=== PATIENT | male | born 1940 | race Hispanic/Latino ===

== ENCOUNTER 2017-05-14 10:23 | Inpatient (IN) | payer OTHER ==
[~2017-05-14] VITALS: Ht 167.6 cm; Wt 61.2 kg
[~2017-05-14 10:23] MED LIST: AMLO5TAB2 PO; FERR325T22 PO; GABA-529 PO; INSLAN SQ; INSU100C14 SQ; METO50TA18 PO; METR500T PO; SIMV40TA5 PO
[2017-05-14] MEDS ORDERED: IOPAMIDOL-370 75 ML VIAL IV ONE (11:13)
[2017-05-14] MEDS ORDERED: SODIUM CHLORIDE 0.9% 500ML 500 ML IV ONE (11:22)
[2017-05-14 11:30] LABS: BASOPHILS % (AUTO) 0.9 % (0.0-5.0); EOSINOPHILS % (AUTO) 2.4 % (0.0-8.0); HEMATOCRIT 25.1 % (42-54); LYMPHOCYTES % (AUTO) 13.6 % (21.0-51.0); MEAN CORPUSCULAR HEMOGLOBIN 31.1 pg (27.0-33.0); MEAN CORPUSCULAR VOLUME 91.5 fL (79-99); MONOCYTES % (AUTO) 8.4 % (3.0-13.0); NEUTROPHILS % (AUTO) 74.7 % (40.0-77.0); PLATELET COUNT (AUTO) 225 K/uL (130-400); RED BLOOD CELL COUNT(AUTO) 2.74 MIL/uL (4.50-6.20); RED CELL DISTRIBUTION WIDTH 14.5 % (11.0-15.5); WHITE BLOOD COUNT (AUTO) 8.3 K/uL (4.8-10.8)
[2017-05-14 11:34] LABS: CREATININE 3.6 mg/dL (0.5-1.5); POTASSIUM 4.7 mmol/L (3.5-5.1)
[2017-05-14 11:38] LABS: ALBUMIN 2.8 g/dL (3.5-5.0); BILIRUBIN,TOTAL 0.5 mg/dL (0.2-1.0); TOTAL PROTEIN, SERUM 6.7 g/dL (6.0-8.3)
[2017-05-14 16:27] LABS: APPEARANCE,URINE Cloudy (CLEAR); BILIRUBIN,URINE Negative (NEGATIVE); COLOR,URINE Yellow (YELLOW); GLUCOSE, URINE (UA) Negative (NEGATIVE); KETONES,URINE Negative (NEGATIVE); LEUKOCYTE ESTERASE ,URINE Large (NEGATIVE); NITRATE,URINE Positive (NEGATIVE); OCCULT BLOOD,URINE Small (NEGATIVE); PROTEIN,URINE POS 2+ (NEGATIVE); UROBILINOGEN,URINE 0.2 mg/dL (0.2-1.0)
[2017-05-14 16:52] LABS: BACTERIA,URINE Many /HPF (None Seen); RBC,URINE None Seen /HPF (0-1); WBC,URINE 26-50 /HPF (0-1)
[2017-05-14] MEDS ORDERED: METRONIDAZOLE 500MG/100ML BAG 100 ML ONE (17:26)
[2017-05-14] MEDS ORDERED: SODIUM CHLORIDE 0.9% 50 ML IV ONE (17:26)
[2017-05-14] MEDS ORDERED: CEFTRIAXONE SODIUM 1 GM ONE (17:26)
[2017-05-15] MEDS ORDERED: METRONIDAZOLE 500MG/100ML BAG 100 ML ONE (00:17)
[2017-05-15] MEDS ORDERED: SODIUM CHLORIDE 0.9% 1000ML 1,000 ML IV SCH (01:10)
[2017-05-15] MEDS ORDERED: HYDRALAZINE HCL 20 MG/ML VIAL IV PRN (01:15)
[2017-05-15] MEDS ORDERED: ONDANSETRON HCL 4 MG/2 ML VIAL IVP PRN (01:15)
[2017-05-15] MEDS ORDERED: DEXTROSE 50%-WATER 50 ML DISP.SYRIN IV PRN (01:15)
[2017-05-15] MEDS ORDERED: GLUCAGON 1MG KIT 1 MG ML IM PRN (01:15)
[2017-05-15] MEDS ORDERED: ACETAMINOPHEN 325 MG TAB PO PRN (01:15)
[2017-05-15] MEDS ORDERED: LEVOFLOXACIN 500 MG/D5W 100 ML 100 ML ONE (02:26)
[2017-05-15] MEDS ORDERED: LOPE2CAP PO (02:56)
[2017-05-15] MEDS: LEVOFLOXACIN 500 MG/D5W 100 ML 100 ML IV SCH (02:59)
[2017-05-15 04:00] VITALS: BP 152/71
[2017-05-15 05:18] LABS: HEMATOCRIT 22.2 % (42-54); MEAN CORPUSCULAR HEMOGLOBIN 32.7 pg (27.0-33.0); MEAN CORPUSCULAR HGB CONC 35.6 g/dL (32.0-36.0); MEAN CORPUSCULAR VOLUME 91.9 fL (79-99); PLATELET COUNT (AUTO) 208 K/uL (130-400); RED BLOOD CELL COUNT(AUTO) 2.42 MIL/uL (4.50-6.20); RED CELL DISTRIBUTION WIDTH 14.5 % (11.0-15.5); WHITE BLOOD COUNT (AUTO) 7.8 K/uL (4.8-10.8)
[2017-05-15 05:32] LABS: CREATININE 3.4 mg/dL (0.5-1.5); POTASSIUM 4.5 mmol/L (3.5-5.1)
[2017-05-15] MEDS: INSULIN HUMULIN R 100 UNIT/ML 3ML SQ SCH ×4 (06:33→21:00)
[2017-05-15 08:01] VITALS: BP 142/64
[2017-05-15] MEDS: FAMOTIDINE 20MG TAB 20 MG TAB PO SCH ×2 (09:56→21:54)
[2017-05-15 11:30] VITALS: BP 150/70
[2017-05-15] MEDS: METOPROLOL TARTRATE 50 MG TAB PO SCH ×2 (14:56→21:54)
[2017-05-15 16:44] VITALS: BP 161/78
[2017-05-15 19:47] VITALS: BP 149/70
[2017-05-15 20:19] LABS: OCCULT BLOOD STOOL SINGLE ONLY NEGATIVE (NEGATIVE)
[2017-05-15] MEDS: ATORVASTATIN CALCIUM 20 MG TABLET PO SCH (21:54)
[2017-05-16 00:12] VITALS: BP 137/69
[2017-05-16] MEDS: LEVOFLOXACIN 500 MG/D5W 100 ML 100 ML IV SCH (01:55)
[2017-05-16 04:49] VITALS: BP 147/71
[2017-05-16 05:12] LABS: HEMATOCRIT 23.9 % (42-54); MEAN CORPUSCULAR HEMOGLOBIN 31.2 pg (27.0-33.0); MEAN CORPUSCULAR HGB CONC 34.1 g/dL (32.0-36.0); MEAN CORPUSCULAR VOLUME 91.5 fL (79-99); PLATELET COUNT (AUTO) 209 K/uL (130-400); RED BLOOD CELL COUNT(AUTO) 2.62 MIL/uL (4.50-6.20); RED CELL DISTRIBUTION WIDTH 14.3 % (11.0-15.5)
[2017-05-16 05:22] LABS: CREATININE 3.6 mg/dL (0.5-1.5); POTASSIUM 4.4 mmol/L (3.5-5.1)
[2017-05-16] MEDS: INSULIN HUMULIN R 100 UNIT/ML 3ML SQ SCH ×4 (06:40→21:40)
[2017-05-16 08:23] VITALS: BP 142/53
[2017-05-16] MEDS ORDERED: LOPERAMIDE HCL 2 MG CAP PO SCH (09:30)
[2017-05-16] MEDS ORDERED: GUAIFENESIN-DM 200/20 MG 10 ML PO PRN (09:30)
[2017-05-16] MEDS ORDERED: MAG HYDROX/AL HYDROX/SIMETH ES 30 ML SUSP UDCUP PO PRN (09:30)
[2017-05-16] MEDS ORDERED: NITROGLYCERIN 0.4 MG SL TAB SL PRN (09:30)
[2017-05-16] MEDS ORDERED: HYDRALAZINE HCL 20 MG/ML VIAL IV PRN (09:30)
[2017-05-16] MEDS ORDERED: LOPERAMIDE HCL 2 MG CAP PO PRN (09:30)
[2017-05-16] MEDS: AMLODIPINE BESYLATE 5 MG TAB PO SCH (10:12)
[2017-05-16] MEDS: METOPROLOL TARTRATE 50 MG TAB PO SCH ×3 (10:12→21:33)
[2017-05-16] MEDS: FAMOTIDINE 20MG TAB 20 MG TAB PO SCH ×2 (10:12→21:33)
[2017-05-16 12:00] VITALS: BP 167/64
[2017-05-16 16:00] VITALS: BP 159/75
[2017-05-16] MEDS: LACTOBACILLUS RHAMNOSUS GG 1 EACH CAP.SPRINK PO SCH (17:44)
[2017-05-16 19:25] VITALS: BP 147/58
[2017-05-16] MEDS: ATORVASTATIN CALCIUM 20 MG TABLET PO SCH (21:33)
[2017-05-16] MEDS: METRONIDAZOLE 500 MG TABLET PO SCH (21:33)
[2017-05-16] MEDS: INSULIN GLARGINE 100 UNITS/ML 10 ML VIAL SQ SCH (21:42)
[2017-05-17 00:21] VITALS: BP 126/54
[2017-05-17] MEDS: LEVOFLOXACIN 500 MG/D5W 100 ML 100 ML IV SCH (01:45)
[2017-05-17 04:00] VITALS: BP 145/65
[2017-05-17 06:25] LABS: CREATININE 3.7 mg/dL (0.5-1.5); MAGNESIUM 1.7 mg/dL (1.80-2.40)
[2017-05-17] MEDS: INSULIN HUMULIN R 100 UNIT/ML 3ML SQ SCH ×4 (06:38→20:58)
[2017-05-17 08:09] VITALS: BP 151/67
[2017-05-17] MEDS: INSULIN GLARGINE 100 UNITS/ML 10 ML VIAL SQ SCH ×2 (09:21→20:58)
[2017-05-17] MEDS: METOPROLOL TARTRATE 50 MG TAB PO SCH ×3 (09:25→20:41)
[2017-05-17] MEDS: FAMOTIDINE 20MG TAB 20 MG TAB PO SCH ×2 (09:25→20:41)
[2017-05-17] MEDS: AMLODIPINE BESYLATE 5 MG TAB PO SCH (09:25)
[2017-05-17] MEDS: METRONIDAZOLE 500 MG TABLET PO SCH ×3 (09:25→20:41)
[2017-05-17] MEDS: LACTOBACILLUS RHAMNOSUS GG 1 EACH CAP.SPRINK PO SCH ×2 (09:26→18:05)
[2017-05-17 11:52] VITALS: BP 143/60
[2017-05-17] MEDS ORDERED: MAGNESIUM 2GM PREMIX 50ML 50 ML IV ONE (14:06)
[2017-05-17] MEDS ORDERED: MAGNESIUM 2GM PREMIX 50ML 50 ML IV SCH (14:15)
[2017-05-17 16:26] VITALS: BP 144/64
[2017-05-17 19:30] VITALS: BP 149/60
[2017-05-17] MEDS: ATORVASTATIN CALCIUM 20 MG TABLET PO SCH (20:41)
[2017-05-18 00:06] VITALS: BP 134/58
[2017-05-18] MEDS: LEVOFLOXACIN 500 MG/D5W 100 ML 100 ML IV SCH (01:15)
[2017-05-18 04:01] VITALS: BP 110/49
[2017-05-18] MEDS: INSULIN HUMULIN R 100 UNIT/ML 3ML SQ SCH ×2 (05:59→11:30)
[2017-05-18 07:45] VITALS: BP 139/71
[2017-05-18] MEDS: INSULIN GLARGINE 100 UNITS/ML 10 ML VIAL SQ SCH (09:00)
[2017-05-18] MEDS: AMLODIPINE BESYLATE 5 MG TAB PO SCH (09:30)
[2017-05-18] MEDS: METOPROLOL TARTRATE 50 MG TAB PO SCH ×2 (09:30→14:00)
[2017-05-18] MEDS: LACTOBACILLUS RHAMNOSUS GG 1 EACH CAP.SPRINK PO SCH (09:30)
[2017-05-18] MEDS: METRONIDAZOLE 500 MG TABLET PO SCH ×2 (09:30→14:17)
[2017-05-18] MEDS: FAMOTIDINE 20MG TAB 20 MG TAB PO SCH (09:30)
[2017-05-18 11:19] VITALS: BP 138/52
== END 2017-05-18 14:30 | disposition home or self-care (01) | DRG 372 ==
LOC: EDH 10:23 → EDHIP 16:40 → OBSVTOIN 16:40 → 4CH 05-15 00:21
PROVIDERS: ADMIT Family Medicine; ATTEND Family Medicine
DX: A04.72 Enterocolitis due to Clostridium difficile, not specified as recurrent (principal); N17.9 Acute kidney failure, unspecified; E11.21 Type 2 diabetes mellitus with diabetic nephropathy; R16.0 Hepatomegaly, not elsewhere classified; E86.0 Dehydration; N39.0 Urinary tract infection, site not specified; E11.22 Type 2 diabetes mellitus with diabetic chronic kidney disease; I12.9 Hypertensive chronic kidney disease with stage 1 through stage 4 chronic kidney disease, or unspecified chronic kidney disease; N18.9 Chronic kidney disease, unspecified; B96.4 Proteus (mirabilis) (morganii) as the cause of diseases classified elsewhere; E78.5 Hyperlipidemia, unspecified; R32 Unspecified urinary incontinence; R91.1 Solitary pulmonary nodule; Z85.46 Personal history of malignant neoplasm of prostate; Z95.0 Presence of cardiac pacemaker
CPT/HCPCS: 36415; 74176; 80048; 80053; 81001; 82270; 82948; 83690; 83735; 85025; 85027; 87046; 87077; 87088; 87177; 87186; 87205; 87324; 87507; J0696; J1815; J1956; J3475; J3490; J7040; Q9967

== ENCOUNTER 2017-12-27 11:33 | Observation (INO) | payer OTHER ==
[~2017-12-27] VITALS: Ht 167.6 cm; Wt 57.0 kg
[~2017-12-27 11:33] MED LIST changes: -AMLO5TAB2 PO; +AMLO5TAB7 PO; -FERR325T22 PO; -GABA-529 PO; +LOPE2CAP PO; -METR500T PO
[2017-12-27 12:13] LABS: BASOPHILS % (AUTO) 1.4 % (0.0-5.0); EOSINOPHILS % (AUTO) 3.3 % (0.0-8.0); HEMATOCRIT 26.7 % (42-54); LYMPHOCYTES % (AUTO) 19.8 % (21.0-51.0); MEAN CORPUSCULAR HEMOGLOBIN 31.9 pg (27.0-33.0); MEAN CORPUSCULAR HGB CONC 33.4 g/dL (32.0-36.0); MEAN CORPUSCULAR VOLUME 95.5 fL (79-99); MONOCYTES % (AUTO) 7.6 % (3.0-13.0); NEUTROPHILS % (AUTO) 67.9 % (40.0-77.0); PLATELET COUNT (AUTO) 213 K/uL (130-400); RED BLOOD CELL COUNT(AUTO) 2.79 MIL/uL (4.50-6.20)
[2017-12-27 12:45] LABS: ALBUMIN 3.3 g/dL (3.5-5.0); BILIRUBIN,TOTAL 0.6 mg/dL (0.2-1.0); CREATININE 5.4 mg/dL (0.5-1.5); POTASSIUM 4.3 mmol/L (3.5-5.1); TOTAL PROTEIN, SERUM 7.3 g/dL (6.0-8.3)
[2017-12-27] MEDS ORDERED: DEXTROSE 50%-WATER 50 ML DISP.SYRIN IV ONE (12:59)
[2017-12-27] MEDS ORDERED: DEXTROSE 50%-WATER 50 ML DISP.SYRIN IV PRN (15:30)
[2017-12-27] MEDS ORDERED: SODIUM CHLORIDE 0.9% 10 ML VIAL IVP SCH (15:30)
[2017-12-27] MEDS ORDERED: GLUCAGON 1MG KIT 1 MG ML IM PRN (15:30)
[2017-12-27 17:30] VITALS: BP 176/80
[2017-12-27 19:00] VITALS: BP 145/71
[2017-12-27] MEDS: FAMOTIDINE/PF 20 MG/2 ML VIAL IV SCH (21:20)
[2017-12-28] VITALS: BP 132/64
[2017-12-28 04:00] VITALS: BP 133/62
[2017-12-28 05:56] LABS: APPEARANCE,URINE Clear (CLEAR); BILIRUBIN,URINE Negative (NEGATIVE); COLOR,URINE Yellow (YELLOW); GLUCOSE, URINE (UA) TRACE mg/dL (NEGATIVE); KETONES,URINE Negative (NEGATIVE); LEUKOCYTE ESTERASE ,URINE Trace (NEGATIVE); NITRATE,URINE Negative (NEGATIVE); OCCULT BLOOD,URINE Trace (NEGATIVE); PROTEIN,URINE 300 (NEGATIVE); UROBILINOGEN,URINE 0.2 mg/dL (0.2-1.0)
[2017-12-28 06:02] LABS: HEMATOCRIT 25.8 % (42-54); MEAN CORPUSCULAR HEMOGLOBIN 32.2 pg (27.0-33.0); MEAN CORPUSCULAR HGB CONC 33.7 g/dL (32.0-36.0); MEAN CORPUSCULAR VOLUME 95.4 fL (79-99); PLATELET COUNT (AUTO) 199 K/uL (130-400); RED BLOOD CELL COUNT(AUTO) 2.71 MIL/uL (4.50-6.20); RED CELL DISTRIBUTION WIDTH 14.2 % (11.0-15.5); WHITE BLOOD COUNT (AUTO) 8.6 K/uL (4.8-10.8)
[2017-12-28 06:07] LABS: AMORPHOUS SEDIMENT,UR Rare /LPF (None Seen); BACTERIA,URINE None Seen /HPF (None Seen); RBC,URINE 0-1 /HPF (0-1); SQUAMOUS EPITHELIAL CELL,UR Rare /HPF (0-2); WBC,URINE 0-1 /HPF (0-1)
[2017-12-28 06:19] LABS: HEMOGLOBIN A1C 9.2 % (4.0-6.0)
[2017-12-28 06:29] LABS: CREATININE 5.2 mg/dL (0.5-1.5); PHOSPHORUS 6.2 mg/dL (2.5-4.9); POTASSIUM 4.6 mmol/L (3.5-5.1); THYROID STIMULATING HORMONE 2.6 uIU/mL (0.36-3.74); URIC ACID 5.8 mg/dL (2.6-7.2)
[2017-12-28 06:33] LABS: % IRON SATURATION 42.4 % (30-44)
[2017-12-28 07:00] VITALS: BP 130/65
[2017-12-28] MEDS ORDERED: FOLIC ACID/VITAMIN B COMP W-C 1 MG CAPSULE PO SCH (09:00)
[2017-12-28] MEDS: FAMOTIDINE/PF 20 MG/2 ML VIAL IV SCH (09:32)
[2017-12-28] MEDS ORDERED: SODIUM BICARBONATE 650 MG TAB PO PRN (10:30)
[2017-12-28] MEDS ORDERED: EPOETIN ALFA 10,000 UNIT/ML VIAL SQ SCH (10:30)
[2017-12-28 11:00] VITALS: BP 128/66
[2017-12-28] MEDS ORDERED: LOPERAMIDE HCL 2 MG CAP PO SCH (11:00)
[2017-12-28] MEDS ORDERED: METOPROLOL TARTRATE 50 MG TAB PO SCH (14:00)
[2017-12-28 16:00] VITALS: BP 169/71
[2017-12-28] MEDS ORDERED: SIMVASTATIN 20 MG TABLET PO SCH (21:00)
[2017-12-29] MEDS ORDERED: AMLODIPINE BESYLATE 5 MG TAB PO SCH (09:00)
== END 2017-12-28 17:20 | disposition home or self-care (01) ==
LOC: EDH 11:33 → EDHIP 13:21 → 3DH 17:15
PROVIDERS: ADMIT Internal Medicine; ATTEND Internal Medicine
DX: E11.649 Type 2 diabetes mellitus with hypoglycemia without coma (principal); I12.9 Hypertensive chronic kidney disease with stage 1 through stage 4 chronic kidney disease, or unspecified chronic kidney disease; N17.9 Acute kidney failure, unspecified; N18.9 Chronic kidney disease, unspecified; D64.9 Anemia, unspecified; E87.2 Acidosis; E78.5 Hyperlipidemia, unspecified; E11.22 Type 2 diabetes mellitus with diabetic chronic kidney disease; Z79.4 Long term (current) use of insulin; Z85.46 Personal history of malignant neoplasm of prostate
CPT/HCPCS: 36415 ×2; 76770; 80048; 80053; 80061; 81001; 82270; 82550; 82728; 82948 ×8; 83036; 83540; 83550; 84100; 84443; 84484; 84550; 85025; 85027; 86850; 86900; 86901; 93005; 96372; 96374; 96376; 99285; G0378 ×28; J0885; J3490 ×2; J7070

== ENCOUNTER 2018-07-21 05:29 | Observation (INO) | payer OTHER ==
[2018-07-19 11:43] VITALS: BP 107/52
[2018-07-19 11:43] LABS: BASOPHILS % (AUTO) 1.9 % (0.0-5.0); EOSINOPHILS % (AUTO) 1.7 % (0.0-8.0); HEMATOCRIT 39.7 % (42-54); LYMPHOCYTES % (AUTO) 14.9 % (21.0-51.0); MEAN CORPUSCULAR HEMOGLOBIN 33.4 pg (27.0-33.0); MEAN CORPUSCULAR HGB CONC 33.5 g/dL (32.0-36.0); MEAN CORPUSCULAR VOLUME 99.5 fL (79-99); MONOCYTES % (AUTO) 7.2 % (3.0-13.0); NEUTROPHILS % (AUTO) 74.3 % (40.0-77.0); PLATELET COUNT (AUTO) 189 K/uL (130-400); RED BLOOD CELL COUNT(AUTO) 3.99 MIL/uL (4.50-6.20); RED CELL DISTRIBUTION WIDTH 14.9 % (11.0-15.5)
[2018-07-19 11:58] LABS: POTASSIUM 5.7 mmol/L (3.5-5.1)
[2018-07-19 12:05] LABS: INR 1.04 (0.85-1.15); PARTIAL THROMBOPLASTIN TIME 28.6 SEC (26.3-35.5); PROTHROMBIN TIME 10.9 SEC (9.6-11.6)
--- NOTE | 2018-07-20 12:23 | NUR ---
LABS ABNORMAL LABS REPORTED TO [facility], FURTHER ORDERS GIVEN AND WILL BE CARRIED OUT
[~2018-07-21] VITALS: Ht 165.1 cm; Wt 59.7 kg
[2018-07-21] VITALS (13 sets, daily range): BP systolic 101–158; BP diastolic 48–66
[~2018-07-21 05:29] MED LIST changes: -AMLO5TAB7 PO; +AMLODIPINE PO; +CALC667C10 PO; -INSU100C14 SQ; -LOPE2CAP PO; +SIMV10TA6 PO; -SIMV40TA5 PO
[2018-07-21] MEDS ORDERED: SODIUM CHLORIDE 0.9% 1000ML 1,000 ML IV ONE (06:01)
--- NOTE | 2018-07-21 07:10 | NUR ---
PROCEDURE PT TAKEN TO [facility] VIA BED FOR PROCEDURE, NO DISTRESS NOTED. FAMILY AT BEDSIDE
[2018-07-21] MEDS ORDERED: IODIXANOL 320 MG/ML 100 ML VIAL ONE (07:25)
[2018-07-21] MEDS ORDERED: BUPIVACAINE/PF 0.25% 30ML VIAL IJ ONE (07:25)
[2018-07-21] MEDS ORDERED: CEFAZOLIN SODIUM 1 GM VIAL ONE (07:25)
[2018-07-21] MEDS ORDERED: MIDAZOLAM HCL 1 MG/ML 2ML VIAL ONE ×2 (07:25→07:45)
[2018-07-21] MEDS ORDERED: MEPERIDINE-PF 25 MG/ML SYG ONE ×2 (07:25→07:45)
[2018-07-21] MEDS ORDERED: LIDOCAINE HCL 1% MDV 50ML VIAL ONE (07:25)
[2018-07-21] MEDS ORDERED: OCTYL 2-CYANOACRYLATE 1 EACH TP ONE ×2 (09:01→09:16)
[2018-07-21] MEDS ORDERED: DEXTROSE 50%-WATER 50 ML DISP.SYRIN IV PRN (09:30)
[2018-07-21] MEDS ORDERED: ONDANSETRON HCL 4 MG/2 ML VIAL IV PRN (09:30)
[2018-07-21] MEDS ORDERED: ACETAMINOPHEN-CODEINE 300/30MG TAB PO PRN (09:30)
--- NOTE | 2018-07-21 10:00 | NUR ---
ASSESSMENT ENCOUNTERED PT A&OX3, CALM COOPERATIVE AND DOES NOT APPEAR TO BE IN ANY DISTRESS NOR ANY NEURO DEFICITS PRESENT. PT DENIES PAIN, SOB, NAUSEA. LEFT SHOULDER DRESSING DRY, INTACT AND SECURED WITH ARM SLING. PULSES AND LENS MOUNTER STRENGTH STRONG. PT ON BEDREST FOR 6 HOURS. CALL LIGHT WITHIN REACH, FAMILY AT BEDSIDE.
[2018-07-21] MEDS: METOPROLOL TARTRATE 50 MG TAB PO SCH ×2 (13:17→21:24)
[2018-07-21] MEDS: INSULIN HUMULIN R 100 UNIT/ML 3ML SQ SCH ×3 (13:29→21:00)
[2018-07-21] MEDS ORDERED: CALCIUM ACETATE 667 MG CAPSULE PO SCH (14:00)
[2018-07-21] MEDS: ACETAMINOPHEN-CODEINE 300/30MG TAB PO PRN (15:49)
[2018-07-21] MEDS: CALCIUM ACETATE 667 MG CAPSULE PO SCH (17:00)
--- NOTE | 2018-07-21 17:00 | NUR ---
AMBULATION PT AMBULATING FOR BED TO BATHROOM AND BACK TO TO CHAIR, GAIT SLOW BUT STEADY WITH ASSIST. PT DENIES DIZZINESS, LIGHTHEADEDNESS OR DYSPNEA ON EXERTION. CALL LIGHT WITHIN REACH, FAMILY AT BEDSIDE.
[2018-07-21] MEDS ORDERED: INSULIN GLARGINE 100 UNITS/ML 10 ML VIAL SQ SCH (21:00)
[2018-07-21] MEDS ORDERED: SIMVASTATIN 10 MG TABLET PO SCH (21:00)
[2018-07-22 03:47] LABS: HEMATOCRIT 38.4 % (42-54); MEAN CORPUSCULAR HEMOGLOBIN 32.1 pg (27.0-33.0); MEAN CORPUSCULAR HGB CONC 32.8 g/dL (32.0-36.0); PLATELET COUNT (AUTO) 143 K/uL (130-400); RED BLOOD CELL COUNT(AUTO) 3.92 MIL/uL (4.50-6.20); RED CELL DISTRIBUTION WIDTH 14.6 % (11.0-15.5); WHITE BLOOD COUNT (AUTO) 6.9 K/uL (4.8-10.8)
[2018-07-22 03:48] LABS: CREATININE 5.6 mg/dL (0.5-1.5); PHOSPHORUS 4.6 mg/dL (2.5-4.9)
[2018-07-22 03:55] VITALS: BP 127/65
[2018-07-22 04:17] LABS: BASOPHILS % (MANUAL) 1 % (0-2); EOSINOPHILS % (MANUAL) 1 % (1-6); LYMPHOCYTES % (MANUAL) 20 % (22-44); MAN.DIFF COMMENT-IMPRESSION MANUAL DIFFERENTIAL; MONOCYTES % (MANUAL) 7 % (2-9); SEGMENTED NEUTROPHILS % 71 % (40-70)
[2018-07-22 04:18] LABS: PLATELET MORPHOLOGY COMMENT ADEQUATE
[2018-07-22 06:19] LABS: HEPATITIS Bs ANTIGEN SCREEN P Negative (Negative)
[2018-07-22] MEDS: INSULIN HUMULIN R 100 UNIT/ML 3ML SQ SCH ×2 (06:19→11:30)
[2018-07-22 07:00] VITALS: BP 127/57
--- NOTE | 2018-07-22 07:40 | NUR ---
ASSESSMENT ENCOUNTERED PT A&OX3, CALM COOPERATIVE AND DOES NOT APPEAR TO BE IN ANY DISTRESS NOR ANY NEURO DEFICITS PRESENT. PT IS AMBULATORY, GAIT SLOW BUT STEADY WITH STAND BY ASSIST. LEFT SHOULDER DRESSING DRY, INTACT AND SECURE WITH ARM SLING. PT IS PENDING HEMODIALYSIS. CALL LIGHT WITHIN REACH, FAMILY AT BEDSIDE.
[2018-07-22] MEDS ORDERED: AMLODIPINE BESYLATE 5 MG TAB PO SCH (09:00)
[2018-07-22 11:00] VITALS: BP 127/62
[2018-07-22] MEDS: CALCIUM ACETATE 667 MG CAPSULE PO SCH ×2 (12:00→12:01)
[2018-07-22] MEDS: METOPROLOL TARTRATE 50 MG TAB PO SCH (12:01)
[2018-07-22] MEDS: ACETAMINOPHEN-CODEINE 300/30MG TAB PO PRN (12:03)
[2018-07-22] MEDS ORDERED: APIX5TAB PO (12:37)
--- NOTE | 2018-07-22 13:00 | NUR ---
DISCHARGE INSTRUCTIONS GIVEN, PIV REMOVED AND INTACT, DISCHARGED HOME TO FAMILY VEHICLE VIA WHEELCHAIR.
== END 2018-07-22 15:20 | disposition home or self-care (01) ==
LOC: DAH 05:29 → DAHIP 05:30 → 2DH 10:06
PROVIDERS: ADMIT Internal Medicine; ATTEND Internal Medicine
DX: I13.2 Hypertensive heart and chronic kidney disease with heart failure and with stage 5 chronic kidney disease, or end stage renal disease (principal); N18.6 End stage renal disease; I50.42 Chronic combined systolic (congestive) and diastolic (congestive) heart failure; I25.10 Atherosclerotic heart disease of native coronary artery without angina pectoris; E11.40 Type 2 diabetes mellitus with diabetic neuropathy, unspecified; I44.2 Atrioventricular block, complete; I48.0 Paroxysmal atrial fibrillation; I42.9 Cardiomyopathy, unspecified; E11.22 Type 2 diabetes mellitus with diabetic chronic kidney disease; D68.59 Other primary thrombophilia; E78.2 Mixed hyperlipidemia; Z95.810 Presence of automatic (implantable) cardiac defibrillator; Z99.2 Dependence on renal dialysis; Z82.49 Family history of ischemic heart disease and other diseases of the circulatory system; Z83.3 Family history of diabetes mellitus; Z79.899 Other long term (current) drug therapy
CPT/HCPCS: 33225; 33228; 36415 ×3; 71046; 80048 ×2; 82948 ×8; 84100; 84132; 85025 ×2; 85610; 85730; 86704; 86706; 87340; 87520; 93005; 96372; A4606; C1769 ×2; C1894; C1900; C2621; G0378 ×34; J0690; J1815; J2175 ×2; J2250 ×2; J3490 ×2; J7030; J7070; Q9967; 90935; 99156; 99157; G0257

== ENCOUNTER 2018-07-25 19:12 | Emergency (ER) | payer OTHER ==
[~2018-07-25 19:12] MED LIST changes: +APIX5TAB PO
[2018-07-25] MEDS ORDERED: BISACODYL 10 MG SUPP.RECT RC ONE (19:57)
[2018-07-25 20:06] LABS: BASOPHILS % (AUTO) 0.9 % (0.0-5.0); EOSINOPHILS % (AUTO) 2.6 % (0.0-8.0); HEMATOCRIT 36.4 % (42-54); LYMPHOCYTES % (AUTO) 10.2 % (21.0-51.0); MEAN CORPUSCULAR HEMOGLOBIN 32.6 pg (27.0-33.0); MEAN CORPUSCULAR HGB CONC 33.1 g/dL (32.0-36.0); MEAN CORPUSCULAR VOLUME 98.4 fL (79-99); MONOCYTES % (AUTO) 8.5 % (3.0-13.0); NEUTROPHILS % (AUTO) 77.8 % (40.0-77.0); PLATELET COUNT (AUTO) 159 K/uL (130-400); RED CELL DISTRIBUTION WIDTH 14.5 % (11.0-15.5); WHITE BLOOD COUNT (AUTO) 8.1 K/uL (4.8-10.8)
[2018-07-25 20:19] LABS: CREATININE 6.4 mg/dL (0.5-1.5); POTASSIUM 4.7 mmol/L (3.5-5.1)
[2018-07-25 20:25] LABS: ALBUMIN 3.7 g/dL (3.5-5.0); BILIRUBIN,DIRECT 0.2 mg/dL (0.0-0.3); TOTAL PROTEIN, SERUM 7.4 g/dL (6.0-8.3)
[2018-07-25] MEDS ORDERED: HYDROCODONE/ACETAMINOPHEN 10/325 MG TAB ONE (20:47)
== END 2018-07-25 22:01 | disposition home or self-care (01) ==
LOC: EDH 19:12
DX: K59.00 Constipation, unspecified (principal); I10 Essential (primary) hypertension; E78.5 Hyperlipidemia, unspecified; E11.9 Type 2 diabetes mellitus without complications; Z95.1 Presence of aortocoronary bypass graft; Z85.46 Personal history of malignant neoplasm of prostate
CPT/HCPCS: 36415; 74176; 80048; 80076; 83690; 85025

== ENCOUNTER 2018-09-16 18:41 | Emergency (ER) | payer OTHER ==
[2018-09-16] MEDS ORDERED: ONDANSETRON HCL 4 MG/2 ML VIAL ONE (19:40)
[2018-09-16] MEDS ORDERED: MORPHINE SULFATE 2 MG/ML 1ML SYG ONE (19:40)
[2018-09-16 19:45] LABS: BASOPHILS % (AUTO) 1.1 % (0.0-5.0); EOSINOPHILS % (AUTO) 2.2 % (0.0-8.0); HEMATOCRIT 31.1 % (42-54); MEAN CORPUSCULAR HEMOGLOBIN 33.4 pg (27.0-33.0); MEAN CORPUSCULAR HGB CONC 34.2 g/dL (32.0-36.0); MEAN CORPUSCULAR VOLUME 97.5 fL (79-99); MONOCYTES % (AUTO) 13.4 % (3.0-13.0); NEUTROPHILS % (AUTO) 60.3 % (40.0-77.0); NUCLEATED RED BLOOD CELLS 0.1 % (0.0-0.19); PLATELET COUNT (AUTO) 176 K/uL (130-400); RED BLOOD CELL COUNT(AUTO) 3.19 MIL/uL (4.50-6.20); RED CELL DISTRIBUTION WIDTH 13.9 % (11.0-15.5); WHITE BLOOD COUNT (AUTO) 6.2 K/uL (4.8-10.8)
[2018-09-16] MEDS ORDERED: ASPIRIN 325 MG TABLET ONE (19:52)
[2018-09-16 19:57] LABS: CREATININE 3.4 mg/dL (0.5-1.5); POTASSIUM 4.2 mmol/L (3.5-5.1)
[2018-09-16 20:00] LABS: INR 0.95 (0.85-1.15); PARTIAL THROMBOPLASTIN TIME 25.7 SEC (26.3-35.5)
[2018-09-16 20:08] LABS: ALBUMIN 3.4 g/dL (3.5-5.0); BILIRUBIN,TOTAL 0.9 mg/dL (0.2-1.0); TOTAL PROTEIN, SERUM 7.2 g/dL (6.0-8.3)
== END 2018-09-16 23:50 | disposition home or self-care (01) ==
LOC: EDH 18:41
DX: I12.0 Hypertensive chronic kidney disease with stage 5 chronic kidney disease or end stage renal disease (principal); E11.22 Type 2 diabetes mellitus with diabetic chronic kidney disease; N18.6 End stage renal disease; R10.9 Unspecified abdominal pain; E78.5 Hyperlipidemia, unspecified; Z98.890 Other specified postprocedural states; Z99.2 Dependence on renal dialysis
CPT/HCPCS: 36415; 71045; 80053; 82550; 83874; 84484 ×2; 85025; 85610; 85730; 93005 ×2; 96374; 96375; 99283; J2405

== ENCOUNTER 2018-09-18 08:05 | Emergency (ER) | payer OTHER ==
[2018-09-18 08:50] LABS: BASOPHILS % (AUTO) 0.7 % (0.0-5.0); EOSINOPHILS % (AUTO) 3.2 % (0.0-8.0); HEMATOCRIT 33.2 % (42-54); LYMPHOCYTES % (AUTO) 15.3 % (21.0-51.0); MEAN CORPUSCULAR HEMOGLOBIN 33.4 pg (27.0-33.0); MEAN CORPUSCULAR VOLUME 98.3 fL (79-99); MONOCYTES % (AUTO) 8.8 % (3.0-13.0); PLATELET COUNT (AUTO) 177 K/uL (130-400); RED BLOOD CELL COUNT(AUTO) 3.38 MIL/uL (4.50-6.20); RED CELL DISTRIBUTION WIDTH 13.9 % (11.0-15.5); WHITE BLOOD COUNT (AUTO) 6.9 K/uL (4.8-10.8)
[2018-09-18] MEDS ORDERED: ASPIRIN 325 MG TABLET ONE (08:55)
[2018-09-18 09:03] LABS: B-TYPE NATRIURETIC PEPTIDE 212 pg/mL (0-100); POTASSIUM 4.2 mmol/L (3.5-5.1)
[2018-09-18 09:04] LABS: INR 0.95 (0.85-1.15); PARTIAL THROMBOPLASTIN TIME 27.1 SEC (26.3-35.5)
[2018-09-18 09:09] LABS: ALBUMIN 3.5 g/dL (3.5-5.0); BILIRUBIN,TOTAL 0.7 mg/dL (0.2-1.0); TOTAL PROTEIN, SERUM 7.3 g/dL (6.0-8.3)
[2018-09-18] MEDS ORDERED: MORPHINE SULFATE 2 MG/ML 1ML SYG ONE (09:17)
[2018-09-18] MEDS ORDERED: ONDANSETRON HCL 4 MG/2 ML VIAL ONE (09:17)
== END 2018-09-18 11:52 | disposition home or self-care (01) ==
LOC: EDH 08:05
DX: K59.00 Constipation, unspecified (principal); R07.89 Other chest pain; E11.22 Type 2 diabetes mellitus with diabetic chronic kidney disease; I12.0 Hypertensive chronic kidney disease with stage 5 chronic kidney disease or end stage renal disease; N18.6 End stage renal disease; Z91.011 Allergy to milk products; Z85.46 Personal history of malignant neoplasm of prostate
CPT/HCPCS: 36415; 71045; 74176; 80053; 82550; 83880; 84484; 85025; 85610; 85730; 93005; 96374; 96375; 99285; J2405

== ENCOUNTER → 2018-10-13 | Outpatient (CLI) | payer OTHER | END | disposition home or self-care (01) | LOC: RAH 08:31 | PROVIDERS: ATTEND Internal Medicine Gastroenterology | DX: N26.1 Atrophy of kidney (terminal) (principal); R93.2 Abnormal findings on diagnostic imaging of liver and biliary tract; R63.4 Abnormal weight loss | CPT/HCPCS: 76700 ==

== ENCOUNTER 2018-11-09 06:39 | Emergency (ER) | payer OTHER ==
[2018-11-09 07:27] LABS: BASOPHILS % (AUTO) 1.2 % (0.0-5.0); EOSINOPHILS % (AUTO) 4.8 % (0.0-8.0); HEMATOCRIT 33.2 % (42-54); LYMPHOCYTES % (AUTO) 21.6 % (21.0-51.0); MEAN CORPUSCULAR HEMOGLOBIN 34.7 pg (27.0-33.0); MEAN CORPUSCULAR HGB CONC 34.4 g/dL (32.0-36.0); MEAN CORPUSCULAR VOLUME 100.9 fL (79-99); MONOCYTES % (AUTO) 7.2 % (3.0-13.0); NEUTROPHILS % (AUTO) 65.2 % (40.0-77.0); PLATELET COUNT (AUTO) 196 K/uL (130-400); RED BLOOD CELL COUNT(AUTO) 3.29 MIL/uL (4.50-6.20); RED CELL DISTRIBUTION WIDTH 14.4 % (11.0-15.5); WHITE BLOOD COUNT (AUTO) 5.7 K/uL (4.8-10.8)
[2018-11-09 07:44] LABS: ALBUMIN 3.3 g/dL (3.5-5.0); BILIRUBIN,DIRECT 0.2 mg/dL (0.0-0.3); BILIRUBIN,TOTAL 0.7 mg/dL (0.2-1.0); CREATININE 7.2 mg/dL (0.5-1.5); POTASSIUM 4.7 mmol/L (3.5-5.1); TOTAL PROTEIN, SERUM 6.8 g/dL (6.0-8.3)
[2018-11-09] MEDS ORDERED: ACETAMINOPHEN-CODEINE 300/30MG TAB ONE (11:18)
[2018-11-09] MEDS ORDERED: [UNRECOGNIZED DRUG - OTHER] (16:11)
[2018-11-09] MEDS ORDERED: FOLI1TAB85 PO (16:11)
[2018-11-10] MEDS ORDERED: TYL3 PO (06:39)
[2018-11-10] MEDS ORDERED: ERGO500014 PO (06:39)
== END 2018-11-09 11:29 | disposition home or self-care (01) ==
LOC: EDH 06:39
DX: E11.22 Type 2 diabetes mellitus with diabetic chronic kidney disease (principal); I12.0 Hypertensive chronic kidney disease with stage 5 chronic kidney disease or end stage renal disease; N18.6 End stage renal disease; M25.551 Pain in right hip; E11.649 Type 2 diabetes mellitus with hypoglycemia without coma; Z85.46 Personal history of malignant neoplasm of prostate; Z88.8 Allergy status to other drugs, medicaments and biological substances
CPT/HCPCS: 36415; 74176; 80048; 80076; 83690; 84484; 85025; 93005

== ENCOUNTER 2018-11-10 05:20 | Day surgery (SDC) | payer OTHER ==
[~2018-11-10] VITALS: Ht 167.6 cm; Wt 56.7 kg
[~2018-11-10 05:20] MED LIST changes: -APIX5TAB PO; +FOLI1TAB85 PO; -SIMV10TA6 PO; +SIMV10TA97 PO; +[UNRECOGNIZED DRUG - OTHER]
[2018-11-10] MEDS ORDERED: SODIUM CHLORIDE 0.9% 1000ML 1,000 ML IV ONE (05:43)
[2018-11-10 06:15] VITALS: BP 155/61
[2018-11-10] MEDS ORDERED: ERGO500014 PO (06:39)
[2018-11-10] MEDS ORDERED: TYL3 PO (06:39)
[2018-11-10] MEDS ORDERED: PROPOFOL 10 MG/ML 20ML VIAL IV ONE (07:16)
[2018-11-10 07:42] VITALS: BP 125/36
[2018-11-10 07:47] VITALS: BP 128/33
[2018-11-10 07:52] VITALS: BP 128/39
[2018-11-10 07:57] VITALS: BP 154/62
[2018-11-10 08:02] VITALS: BP 152/60
== END 2018-11-10 08:10 | disposition home or self-care (01) ==
LOC: DAH 05:20 → ENDO 05:20
PROVIDERS: ATTEND Internal Medicine Gastroenterology
DX: R19.4 Change in bowel habit (principal); D12.0 Benign neoplasm of cecum; K64.1 Second degree hemorrhoids; K57.30 Diverticulosis of large intestine without perforation or abscess without bleeding; I25.10 Atherosclerotic heart disease of native coronary artery without angina pectoris; K29.70 Gastritis, unspecified, without bleeding; E11.22 Type 2 diabetes mellitus with diabetic chronic kidney disease; D63.1 Anemia in chronic kidney disease; I12.0 Hypertensive chronic kidney disease with stage 5 chronic kidney disease or end stage renal disease; N18.6 End stage renal disease; Z95.0 Presence of cardiac pacemaker; Z91.011 Allergy to milk products; Z79.4 Long term (current) use of insulin; Z79.899 Other long term (current) drug therapy; Z85.46 Personal history of malignant neoplasm of prostate; E78.00 Pure hypercholesterolemia, unspecified; Z86.010 Personal history of colon polyps
CPT/HCPCS: 36415; 45388; 82948 ×2; 84132; 88305; A4221; A4222; A4223; A4335; A4606; A4615; A4663; J2704; J7030

== ENCOUNTER 2018-11-11 06:45 | Emergency (ER) | payer OTHER ==
[~2018-11-11 06:45] MED LIST changes: +ERGO500014 PO; +TYL3 PO
[2018-11-11] MEDS ORDERED: KETOROLAC TROMETHAMINE 15MG/ML ONE (08:03)
[2018-11-11 08:10] LABS: BASOPHILS % (AUTO) 0.4 % (0.0-5.0); EOSINOPHILS % (AUTO) 0.3 % (0.0-8.0); HEMATOCRIT 34.5 % (42-54); LYMPHOCYTES % (AUTO) 6.1 % (21.0-51.0); MEAN CORPUSCULAR HEMOGLOBIN 34.1 pg (27.0-33.0); MEAN CORPUSCULAR HGB CONC 33.5 g/dL (32.0-36.0); MEAN CORPUSCULAR VOLUME 101.8 fL (79-99); NEUTROPHILS % (AUTO) 85.2 % (40.0-77.0); PLATELET COUNT (AUTO) 165 K/uL (130-400); RED BLOOD CELL COUNT(AUTO) 3.39 MIL/uL (4.50-6.20); RED CELL DISTRIBUTION WIDTH 14.1 % (11.0-15.5); WHITE BLOOD COUNT (AUTO) 16.2 K/uL (4.8-10.8)
[2018-11-11 08:17] LABS: CREATININE 5.3 mg/dL (0.5-1.5); POTASSIUM 4.6 mmol/L (3.5-5.1)
[2018-11-11 08:24] LABS: ALBUMIN 3.3 g/dL (3.5-5.0); BILIRUBIN,TOTAL 1.4 mg/dL (0.2-1.0)
[2018-11-11 11:34] LABS: APPEARANCE,URINE Clear (CLEAR); BILIRUBIN,URINE Negative (NEGATIVE); COLOR,URINE Yellow (YELLOW); GLUCOSE, URINE (UA) TRACE mg/dL (NEGATIVE); KETONES,URINE Negative (NEGATIVE); LEUKOCYTE ESTERASE ,URINE Negative (NEGATIVE); NITRATE,URINE Negative (NEGATIVE); OCCULT BLOOD,URINE Negative (NEGATIVE); PH,URINE >=9.0 (5.0-8.0); PROTEIN,URINE POS 2+ mg/dL (NEGATIVE); UROBILINOGEN,URINE 0.2 mg/dL (0.2-1.0)
[2018-11-11 12:12] LABS: BACTERIA,URINE Rare /HPF (None Seen); RBC,URINE 0-1 /HPF (0-1); SQUAMOUS EPITHELIAL CELL,UR Rare /HPF (0-2); WBC,URINE 0-1 /HPF (0-1)
== END 2018-11-11 19:06 | disposition home or self-care (01) ==
LOC: EDH 06:45
DX: R10.31 Right lower quadrant pain (principal); I12.0 Hypertensive chronic kidney disease with stage 5 chronic kidney disease or end stage renal disease; E11.22 Type 2 diabetes mellitus with diabetic chronic kidney disease; N18.6 End stage renal disease; E78.5 Hyperlipidemia, unspecified; Z98.890 Other specified postprocedural states; Z91.011 Allergy to milk products; Z79.4 Long term (current) use of insulin
CPT/HCPCS: 36415; 74176; 80053; 81001; 82948 ×2; 85025; 96374; 99284; J1885

== ENCOUNTER 2019-04-14 23:33 | Emergency (ER) | payer OTHER ==
[2019-04-15] MEDS ORDERED: ONDANSETRON HCL 4 MG/2 ML VIAL ONE (00:07)
[2019-04-15] MEDS ORDERED: ACETAMINOPHEN EXTRA STRENGTH 500 MG TABLET ONE (00:07)
[2019-04-15 00:50] LABS: EOSINOPHILS % (AUTO) 4.2 % (0.0-8.0); HEMATOCRIT 34.1 % (42-54); LYMPHOCYTES % (AUTO) 20.3 % (21.0-51.0); MEAN CORPUSCULAR HEMOGLOBIN 32.8 pg (27.0-33.0); MEAN CORPUSCULAR HGB CONC 33.4 g/dL (32.0-36.0); MONOCYTES % (AUTO) 11.8 % (3.0-13.0); NEUTROPHILS % (AUTO) 62.5 % (40.0-77.0); PLATELET COUNT (AUTO) 138 K/uL (130-400); RED BLOOD CELL COUNT(AUTO) 3.48 MIL/uL (4.50-6.20); RED CELL DISTRIBUTION WIDTH 12.5 % (11.0-15.5); WHITE BLOOD COUNT (AUTO) 5.9 K/uL (4.8-10.8)
[2019-04-15 00:51] LABS: ALBUMIN 3.6 g/dL (3.5-5.0); BILIRUBIN,TOTAL 0.7 mg/dL (0.2-1.0); CREATININE 3.6 mg/dL (0.5-1.5); POTASSIUM 3.7 mmol/L (3.5-5.1); TOTAL PROTEIN, SERUM 7.2 g/dL (6.0-8.3)
[2019-04-15 00:54] LABS: INR 0.93 (0.85-1.15); PARTIAL THROMBOPLASTIN TIME 26.5 SEC (26.3-35.5); PROTHROMBIN TIME 9.8 SEC (9.6-11.6)
== END 2019-04-15 02:19 | disposition home or self-care (01) ==
LOC: EDH 23:33
DX: F43.9 Reaction to severe stress, unspecified (principal); I12.0 Hypertensive chronic kidney disease with stage 5 chronic kidney disease or end stage renal disease; E11.22 Type 2 diabetes mellitus with diabetic chronic kidney disease; N18.6 End stage renal disease; R11.0 Nausea; Z99.2 Dependence on renal dialysis; Z98.890 Other specified postprocedural states; Z85.46 Personal history of malignant neoplasm of prostate
CPT/HCPCS: 36415; 70450; 80053; 82550; 84484; 85025; 85610; 85730; 93005; 96374; 99284; J2405

== ENCOUNTER 2019-06-23 14:49 | Emergency (ER) | payer OTHER ==
[2019-06-23] MEDS ORDERED: ONDANSETRON HCL 4 MG/2 ML VIAL ONE (15:25)
[2019-06-23 15:29] LABS: BASOPHILS % (AUTO) 0.4 % (0.0-5.0); EOSINOPHILS % (AUTO) 0.3 % (0.0-8.0); HEMATOCRIT 29.1 % (42-54); LYMPHOCYTES % (AUTO) 9.8 % (21.0-51.0); MEAN CORPUSCULAR HEMOGLOBIN 33.4 pg (27.0-33.0); MEAN CORPUSCULAR HGB CONC 35.4 g/dL (32.0-36.0); MEAN CORPUSCULAR VOLUME 94.5 fL (79-99); MONOCYTES % (AUTO) 9.6 % (3.0-13.0); NEUTROPHILS % (AUTO) 79.7 % (40.0-77.0); PLATELET COUNT (AUTO) 187 K/uL (130-400); RED BLOOD CELL COUNT(AUTO) 3.08 MIL/uL (4.50-6.20); RED CELL DISTRIBUTION WIDTH 12.1 % (11.0-15.5); WHITE BLOOD COUNT (AUTO) 9.6 K/uL (4.8-10.8)
[2019-06-23 15:43] LABS: CREATININE 3.2 mg/dL (0.5-1.5); POTASSIUM 3.1 mmol/L (3.5-5.1)
[2019-06-23 15:45] LABS: INR 0.93 (0.85-1.15); PARTIAL THROMBOPLASTIN TIME 25.5 SEC (26.3-35.5); PROTHROMBIN TIME 10.1 SEC (9.6-11.6)
[2019-06-23 15:49] LABS: ALBUMIN 3.9 g/dL (3.5-5.0); BILIRUBIN,TOTAL 1.3 mg/dL (0.2-1.0); TOTAL PROTEIN, SERUM 7.4 g/dL (6.0-8.3)
[2019-06-23] MEDS ORDERED: POTASSIUM CHLORIDE 20 MEQ ERTAB PO ONE (16:58)
== END 2019-06-23 18:17 | disposition home or self-care (01) ==
LOC: EDH 14:49
DX: R51 Headache (principal); E11.22 Type 2 diabetes mellitus with diabetic chronic kidney disease; I12.0 Hypertensive chronic kidney disease with stage 5 chronic kidney disease or end stage renal disease; N18.6 End stage renal disease
CPT/HCPCS: 36415; 70450; 71045; 80053; 82550; 84484 ×2; 85025; 85610; 85730; 93005 ×2; 96374; 99284; J2405

== ENCOUNTER → 2019-08-26 | Outpatient (CLI) | payer OTHER | END | disposition home or self-care (01) | DX: I70.208 Unspecified atherosclerosis of native arteries of extremities, other extremity (principal) ==

== ENCOUNTER 2020-06-09 20:13 | Emergency (ER) | payer OTHER ==
[2020-06-09] MEDS ORDERED: HYDROXYZINE HCL 25 MG TABLET ONE (20:41)
[2020-06-09] MEDS ORDERED: NIFEDIPINE 10 MG CAP ONE (21:28)
[2020-06-09 21:54] LABS: BASOPHILS % (AUTO) 1.3 % (0.0-5.0); EOSINOPHILS % (AUTO) 3.6 % (0.0-8.0); HEMATOCRIT 40.2 % (42-54); LYMPHOCYTES % (AUTO) 18.1 % (21.0-51.0); MEAN CORPUSCULAR HEMOGLOBIN 32.3 pg (27.0-33.0); MEAN CORPUSCULAR HGB CONC 32.1 g/dL (32.0-36.0); MEAN CORPUSCULAR VOLUME 100.5 fL (79-99); MONOCYTES % (AUTO) 9.7 % (3.0-13.0); NEUTROPHILS % (AUTO) 67.1 % (40.0-77.0); PLATELET COUNT (AUTO) 120 K/uL (130-400); RED CELL DISTRIBUTION WIDTH 13.2 % (11.0-15.5); WHITE BLOOD COUNT (AUTO) 5.6 K/uL (4.8-10.8)
[2020-06-09 22:14] LABS: ALBUMIN 3.5 g/dL (3.5-5.0); BILIRUBIN,TOTAL 0.4 mg/dL (0.2-1.0); CREATININE 5.5 mg/dL (0.5-1.5); POTASSIUM 4.6 mmol/L (3.5-5.1); TOTAL PROTEIN, SERUM 6.8 g/dL (6.0-8.3)
== END 2020-06-09 22:47 | disposition home or self-care (01) ==
LOC: EDH 20:13
DX: F41.9 Anxiety disorder, unspecified (principal); G47.00 Insomnia, unspecified; I12.0 Hypertensive chronic kidney disease with stage 5 chronic kidney disease or end stage renal disease; E11.22 Type 2 diabetes mellitus with diabetic chronic kidney disease; N18.6 End stage renal disease; E78.5 Hyperlipidemia, unspecified; Z99.2 Dependence on renal dialysis; Z98.890 Other specified postprocedural states
CPT/HCPCS: 36415; 71045; 80053; 84484; 85025; 93005

== ENCOUNTER 2020-11-06 02:13 | Inpatient (IN) | payer OTHER ==
[~2020-11-06] VITALS: Ht 152.4 cm; Wt 58.4 kg
[2020-11-06] VITALS (8 sets, daily range): BP systolic 110–211; BP diastolic 42–83
[2020-11-06] MEDS ORDERED: HYDRALAZINE 20MG/ML VIAL ONE (02:44)
[2020-11-06 02:52] LABS: BASOPHILS % (AUTO) 0.8 % (0.0-5.0); EOSINOPHILS % (AUTO) 2.1 % (0.0-8.0); HEMATOCRIT 39.7 % (42-54); LYMPHOCYTES % (AUTO) 16.9 % (21.0-51.0); MEAN CORPUSCULAR HEMOGLOBIN 32.7 pg (27.0-33.0); MEAN CORPUSCULAR HGB CONC 32.2 g/dL (32.0-36.0); MEAN CORPUSCULAR VOLUME 101.3 fL (79-99); MONOCYTES % (AUTO) 11.5 % (3.0-13.0); NEUTROPHILS % (AUTO) 68.4 % (40.0-77.0); PLATELET COUNT (AUTO) 137 K/uL (130-400); RED BLOOD CELL COUNT(AUTO) 3.92 MIL/uL (4.50-6.20); RED CELL DISTRIBUTION WIDTH 13.3 % (11.0-15.5); WHITE BLOOD COUNT (AUTO) 6.2 K/uL (4.8-10.8)
[2020-11-06] MEDS: HYDRALAZINE 20MG/ML VIAL IV SCH ×2 (03:00→03:16)
[2020-11-06 03:04] LABS: ALBUMIN 3.5 g/dL (3.5-5.0); BILIRUBIN,TOTAL 0.6 mg/dL (0.2-1.0); CREATININE 4.4 mg/dL (0.5-1.5); POTASSIUM 4.4 mmol/L (3.5-5.1); TOTAL PROTEIN, SERUM 6.9 g/dL (6.0-8.3)
[2020-11-06 03:13] LABS: B-TYPE NATRIURETIC PEPTIDE 831 pg/mL (0-100)
[2020-11-06] MEDS ORDERED: NITROGLYCERIN 1GM OINT 1 INCH/1GM TD ONE ×2 (03:36→04:00)
[2020-11-06] MEDS ORDERED: ASPIRIN 81MG CHEW TAB ONE (03:36)
[2020-11-06] MEDS ORDERED: ASPIRIN 325MG TAB PO ONE (04:00)
[2020-11-06] MEDS ORDERED: FOLI0.8T43 PO (04:40)
[2020-11-06] MEDS ORDERED: VITA-395 PO (04:40)
[2020-11-06] MEDS ORDERED: METO50TA18 PO (04:40)
[2020-11-06] MEDS ORDERED: SIMV10TA97 PO (04:40)
[2020-11-06] MEDS ORDERED: CALC667C10 PO (04:40)
[2020-11-06] MEDS ORDERED: AMLO-257 PO (04:40)
[2020-11-06] MEDS: NITROGLYCERIN 1GM OINT 1 INCH/1GM TD SCH ×3 (05:00→21:43)
[2020-11-06] MEDS ORDERED: HYDRALAZINE 20MG/ML VIAL IV PRN (05:00)
[2020-11-06] MEDS ORDERED: MORPHINE 2 MG SYG IV PRN (05:00)
[2020-11-06] MEDS ORDERED: ONDANSETRON 4MG INJ IV PRN (05:00)
[2020-11-06 05:58] LABS: HEMOGLOBIN A1C 8.4 % (4.0-6.0)
[2020-11-06] MEDS: INSULIN HUMULIN R 100 UNIT/ML 3ML SQ SCH ×4 (09:06→21:49)
[2020-11-06] MEDS: ASPIRIN 81 MG EC TAB PO SCH (09:19)
[2020-11-06] MEDS: HEPARIN 5,000 UNIT VIAL SQ SCH ×3 (09:19→21:43)
[2020-11-06] MEDS: LISINOPRIL 20 MG TABLET PO SCH (09:53)
[2020-11-06] MEDS: CALCIUM AC 667MG CAP PO SCH ×2 (13:43→18:14)
[2020-11-06] MEDS: METOPROLOL TARTRATE 50 MG TAB PO SCH ×2 (14:21→21:43)
[2020-11-07] VITALS (21 sets, daily range): BP systolic 125–178; BP diastolic 54–76
[2020-11-07] MEDS: NITROGLYCERIN 1GM OINT 1 INCH/1GM TD SCH ×2 (05:30→13:00)
[2020-11-07] MEDS: HYDRALAZINE 20MG/ML VIAL IV SCH (05:30)
[2020-11-07 05:48] LABS: BASOPHILS % (AUTO) 0.5 % (0.0-5.0); EOSINOPHILS % (AUTO) 0.5 % (0.0-8.0); HEMATOCRIT 40.1 % (42-54); LYMPHOCYTES % (AUTO) 9.6 % (21.0-51.0); MEAN CORPUSCULAR HGB CONC 31.7 g/dL (32.0-36.0); NEUTROPHILS % (AUTO) 81.2 % (40.0-77.0); PLATELET COUNT (AUTO) 156 K/uL (130-400); RED BLOOD CELL COUNT(AUTO) 3.97 MIL/uL (4.50-6.20); RED CELL DISTRIBUTION WIDTH 13.3 % (11.0-15.5)
[2020-11-07 06:12] LABS: CREATININE 5.6 mg/dL (0.5-1.5); MAGNESIUM 2.4 mg/dL (1.80-2.40); PHOSPHORUS 5.2 mg/dL (2.5-4.9); POTASSIUM 4.1 mmol/L (3.5-5.1)
[2020-11-07] MEDS: INSULIN HUMULIN R 100 UNIT/ML 3ML SQ SCH ×3 (06:12→16:56)
[2020-11-07] MEDS ORDERED: METOPROLOL TARTRATE 50 MG TAB PO SCH ×2 (09:00→21:00)
[2020-11-07] MEDS ORDERED: LISINOPRIL 20 MG TABLET PO SCH (09:00)
[2020-11-07] MEDS: HEPARIN 5,000 UNIT VIAL SQ SCH ×2 (09:00→14:00)
[2020-11-07] MEDS ORDERED: AMLODIPINE 5 MG TAB PO SCH (09:00)
[2020-11-07] MEDS: LISINOPRIL 20 MG TABLET PO SCH (09:30)
[2020-11-07] MEDS: CALCIUM AC 667MG CAP PO SCH ×3 (10:09→16:54)
[2020-11-07] MEDS: ASPIRIN 81 MG EC TAB PO SCH (10:09)
[2020-11-07] MEDS ORDERED: 0.9%NACL 1000ML 1,000 ML IV PRN (12:00)
[2020-11-07] MEDS ORDERED: LISI20TA24 PO (14:12)
[2020-11-07] MEDS ORDERED: METO-482 PO (14:31)
[2020-11-08 06:16] LABS: HEPATITIS Bs ANTIGEN SCREEN P Negative (Negative)
== END 2020-11-07 17:54 | disposition home or self-care (01) | DRG 304 ==
LOC: EDH 02:13 → EDHIP 04:37 → 4CH 11-07 04:49
PROVIDERS: ADMIT Internal Medicine; ATTEND Internal Medicine
PROC: 5A1D70Z Performance of Urinary Filtration, Intermittent, Less than 6 Hours Per Day (ICD-10-PCS; principal; 2020-11-07)
DX: I16.0 Hypertensive urgency (principal); N18.6 End stage renal disease; I12.0 Hypertensive chronic kidney disease with stage 5 chronic kidney disease or end stage renal disease; E11.22 Type 2 diabetes mellitus with diabetic chronic kidney disease; E11.65 Type 2 diabetes mellitus with hyperglycemia; E78.5 Hyperlipidemia, unspecified; I48.0 Paroxysmal atrial fibrillation; D63.8 Anemia in other chronic diseases classified elsewhere; E78.00 Pure hypercholesterolemia, unspecified; I25.10 Atherosclerotic heart disease of native coronary artery without angina pectoris; Z99.2 Dependence on renal dialysis; Z95.0 Presence of cardiac pacemaker; Z79.01 Long term (current) use of anticoagulants; Z91.14 Patient's other noncompliance with medication regimen; Z88.8 Allergy status to other drugs, medicaments and biological substances; Z86.73 Personal history of transient ischemic attack (TIA), and cerebral infarction without residual deficits; Z83.3 Family history of diabetes mellitus; Z82.49 Family history of ischemic heart disease and other diseases of the circulatory system; R07.89 Other chest pain
CPT/HCPCS: 36415; 70450; 71045; 80048; 80053; 82550; 82948; 83036; 83735; 83880; 84100; 84484; 85025; 86704; 86706; 87340; 90935; 93005; G0378; J0360; J1644; J1815

== ENCOUNTER 2020-11-18 21:42 | Emergency (ER) | payer OTHER ==
[~2020-11-18] VITALS: Ht 167.6 cm; Wt 61.2 kg
[~2020-11-18 21:42] MED LIST changes: +AMLO-257 PO; -AMLODIPINE PO; +FOLI0.8T43 PO; -INSLAN SQ; +LISI20TA24 PO; +METO-482 PO; -METO50TA18 PO; -TYL3 PO; +VITA-395 PO; -[UNRECOGNIZED DRUG - OTHER]
[2020-11-18 23:15] LABS: EOSINOPHILS % (AUTO) 3.1 % (0.0-8.0); HEMATOCRIT 42.4 % (42-54); LYMPHOCYTES % (AUTO) 17.9 % (21.0-51.0); MEAN CORPUSCULAR HEMOGLOBIN 32.2 pg (27.0-33.0); MEAN CORPUSCULAR HGB CONC 32.1 g/dL (32.0-36.0); MEAN CORPUSCULAR VOLUME 100.5 fL (79-99); MONOCYTES % (AUTO) 9.4 % (3.0-13.0); NEUTROPHILS % (AUTO) 68.3 % (40.0-77.0); PLATELET COUNT (AUTO) 147 K/uL (130-400); RED BLOOD CELL COUNT(AUTO) 4.22 MIL/uL (4.50-6.20); RED CELL DISTRIBUTION WIDTH 12.8 % (11.0-15.5); WHITE BLOOD COUNT (AUTO) 7.8 K/uL (4.8-10.8)
[2020-11-18 23:28] LABS: CREATININE 7.3 mg/dL (0.5-1.5); POTASSIUM 4.8 mmol/L (3.5-5.1)
[2020-11-18 23:29] LABS: PROTHROMBIN TIME 10.9 SEC (9.6-11.6)
[2020-11-18 23:32] LABS: ALBUMIN 3.6 g/dL (3.5-5.0); BILIRUBIN,TOTAL 0.4 mg/dL (0.2-1.0); TOTAL PROTEIN, SERUM 7.2 g/dL (6.0-8.3)
[2020-11-18] MEDS ORDERED: CLONIDINE HCL 0.1 MG TABLET ONE (23:37)
[2020-11-19] MEDS ORDERED: CLONIDINE HCL 0.2 MG TABLET PO ONE
[2020-11-19] MEDS ORDERED: HYDRALAZINE 20MG/ML VIAL IV SCH (00:30)
[2020-11-19] MEDS ORDERED: HYDRALAZINE 20MG/ML VIAL ONE (00:30)
[2020-11-19 01:57] VITALS: BP 152/55
== END 2020-11-19 02:44 | disposition home or self-care (01) ==
LOC: EDH 21:42
DX: I12.0 Hypertensive chronic kidney disease with stage 5 chronic kidney disease or end stage renal disease (principal); N18.6 End stage renal disease; E87.70 Fluid overload, unspecified; Z79.899 Other long term (current) drug therapy; Z99.2 Dependence on renal dialysis
CPT/HCPCS: 36415; 71045; 80053; 84484; 85025; 85610; 96374; 99283; J0360

== ENCOUNTER → 2020-12-25 | Outpatient (CLI) | payer OTHER ==
[~2020-12-25] VITALS: Ht 167.6 cm; Wt 57.2 kg
[2020-12-25 15:57] LABS: BASOPHILS % (AUTO) 0.8 % (0.0-5.0); EOSINOPHILS % (AUTO) 2.2 % (0.0-8.0); HEMATOCRIT 39.1 % (42-54); MEAN CORPUSCULAR HEMOGLOBIN 31.2 pg (27.0-33.0); MEAN CORPUSCULAR HGB CONC 31.7 g/dL (32.0-36.0); MEAN CORPUSCULAR VOLUME 98.2 fL (79-99); MONOCYTES % (AUTO) 13.6 % (3.0-13.0); NEUTROPHILS % (AUTO) 64.2 % (40.0-77.0); PLATELET COUNT (AUTO) 186 K/uL (130-400); RED BLOOD CELL COUNT(AUTO) 3.98 MIL/uL (4.50-6.20); RED CELL DISTRIBUTION WIDTH 13.7 % (11.0-15.5); WHITE BLOOD COUNT (AUTO) 6.3 K/uL (4.8-10.8)
[2020-12-25 16:02] LABS: APPEARANCE,URINE Clear (CLEAR); BILIRUBIN,URINE Negative (NEGATIVE); COLOR,URINE Yellow (YELLOW); GLUCOSE, URINE (UA) 500 mg/dL (NEGATIVE); KETONES,URINE Negative (NEGATIVE); LEUKOCYTE ESTERASE ,URINE Trace (NEGATIVE); NITRATE,URINE Negative (NEGATIVE); OCCULT BLOOD,URINE Trace (NEGATIVE); PH,URINE >=9.0 (5.0-8.0); PROTEIN,URINE 300 mg/dL (NEGATIVE); UROBILINOGEN,URINE 0.2 mg/dL (0.2-1.0)
[2020-12-25 16:09] LABS: INR 1.09 (0.85-1.15); PROTHROMBIN TIME 11.8 SEC (9.6-11.6)
[2020-12-25 16:10] LABS: PARTIAL THROMBOPLASTIN TIME 29.7 SEC (26.3-35.5)
[2020-12-25 16:19] LABS: CREATININE 6.8 mg/dL (0.5-1.5); POTASSIUM 5.4 mmol/L (3.5-5.1)
[2020-12-25 16:22] LABS: BACTERIA,URINE Rare /HPF (None Seen); MUCUS,URINE Few LPF (None Seen); RBC,URINE 0-1 /HPF (0-1); SQUAMOUS EPITHELIAL CELL,UR Few /HPF (0-2); WBC,URINE 0-1 /HPF (0-1)
[2020-12-26 11:29] VITALS: BP 164/77
== END | disposition home or self-care (01) ==
LOC: DAH 10:00 → EDSTATUS 11:00
PROVIDERS: ATTEND Internal Medicine Cardiovascular Disease
DX: Z01.810 Encounter for preprocedural cardiovascular examination (principal); I25.10 Atherosclerotic heart disease of native coronary artery without angina pectoris; Z79.01 Long term (current) use of anticoagulants
CPT/HCPCS: 36415; 71045; 80048; 81001; 85025; 85610; 85730; 93005

== ENCOUNTER 2021-02-04 09:03 | Day surgery (SDC) | payer OTHER ==
[2021-01-31 13:22] LABS: EOSINOPHILS % (AUTO) 1.4 % (0.0-8.0); HEMATOCRIT 37.8 % (42-54); LYMPHOCYTES % (AUTO) 11.6 % (21.0-51.0); MEAN CORPUSCULAR HEMOGLOBIN 31.3 pg (27.0-33.0); MEAN CORPUSCULAR HGB CONC 33.6 g/dL (32.0-36.0); MEAN CORPUSCULAR VOLUME 93.1 fL (79-99); MONOCYTES % (AUTO) 9.3 % (3.0-13.0); NEUTROPHILS % (AUTO) 76.6 % (40.0-77.0); PLATELET COUNT (AUTO) 183 K/uL (130-400); RED BLOOD CELL COUNT(AUTO) 4.06 MIL/uL (4.50-6.20); RED CELL DISTRIBUTION WIDTH 14.5 % (11.0-15.5)
[2021-01-31 13:25] LABS: APPEARANCE,URINE Clear (CLEAR); BILIRUBIN,URINE Negative (NEGATIVE); COLOR,URINE Yellow (YELLOW); GLUCOSE, URINE (UA) >=1000 mg/dL (NEGATIVE); KETONES,URINE Negative (NEGATIVE); LEUKOCYTE ESTERASE ,URINE Negative (NEGATIVE); NITRATE,URINE Negative (NEGATIVE); OCCULT BLOOD,URINE Trace (NEGATIVE); PH,URINE >=9.0 (5.0-8.0); PROTEIN,URINE 300 mg/dL (NEGATIVE); UROBILINOGEN,URINE 0.2 mg/dL (0.2-1.0)
[2021-01-31 13:30] LABS: BACTERIA,URINE Rare /HPF (None Seen); RBC,URINE 0-1 /HPF (0-1); SQUAMOUS EPITHELIAL CELL,UR Rare /HPF (0-2); WBC,URINE 0-1 /HPF (0-1)
[2021-01-31 13:37] LABS: CREATININE 5.4 mg/dL (0.5-1.5); POTASSIUM 4.4 mmol/L (3.5-5.1)
[2021-01-31 13:40] LABS: INR 1.06 (0.85-1.15); PROTHROMBIN TIME 11.5 SEC (9.6-11.6)
[2021-01-31 13:41] LABS: PARTIAL THROMBOPLASTIN TIME 30.7 SEC (26.3-35.5)
[~2021-02-04] VITALS: Ht 167.6 cm; Wt 59.0 kg
[2021-02-04] VITALS (11 sets, daily range): BP systolic 141–189; BP diastolic 55–64
[~2021-02-04 09:03] MED LIST changes: +0.9%NACL 1000ML 1,000 ML IV SCH; -AMLO-257 PO; +AMLO-258 PO; +APIX2.5T PO; -CALC667C10 PO; -ERGO500014 PO; -FOLI0.8T43 PO; -FOLI1TAB85 PO; -LISI20TA24 PO; -METO-482 PO; +METO50TA18 PO
[2021-02-04] MEDS ORDERED: INSLAN SQ (09:51)
[2021-02-04] MEDS ORDERED: CALC667C10 PO (09:51)
[2021-02-04] MEDS ORDERED: LISI40TA9 PO (09:51)
[2021-02-04] MEDS ORDERED: HUMALOG SQ (09:51)
[2021-02-04] MEDS ORDERED: SODIUM BICARB 50MEQ 50ML VIAL 50 ML ONE (12:10)
[2021-02-04] MEDS ORDERED: IOHEXOL-350 50ML VIAL IV ONE (12:11)
[2021-02-04] MEDS ORDERED: IOHEXOL 350 MG/ML 100ML INFUS..BTL IV ONE (12:11)
[2021-02-04] MEDS ORDERED: LIDOCAINE HCL 400MG/20ML VIAL ONE (12:11)
[2021-02-04] MEDS ORDERED: NITROGLYCERIN 2 MG VIAL IV ONE (12:11)
[2021-02-04] MEDS ORDERED: MIDAZOLAM HCL 1 MG/ML 2ML VIAL ONE ×2 (12:54→13:20)
[2021-02-04] MEDS ORDERED: MEPERIDINE-PF 25 MG/ML SYG ONE ×2 (12:54→13:20)
[2021-02-04] MEDS ORDERED: LABETALOL 20MG VIAL IV ONE (13:22)
[2021-02-04] MEDS ORDERED: DEXTROSE 50%-WATER 50 ML DISP.SYRIN IV PRN (14:00)
[2021-02-04] MEDS ORDERED: GLUCAGON 1MG KIT 1 MG ML IM PRN (14:00)
[2021-02-04] MEDS ORDERED: INSULIN HUMULIN R 100 UNIT/ML 3ML SQ SCH (16:30)
== END 2021-02-04 19:20 | disposition home or self-care (01) ==
LOC: DAH 09:03
PROVIDERS: ATTEND Internal Medicine Cardiovascular Disease
DX: I25.119 Atherosclerotic heart disease of native coronary artery with unspecified angina pectoris (principal); E11.22 Type 2 diabetes mellitus with diabetic chronic kidney disease; E11.51 Type 2 diabetes mellitus with diabetic peripheral angiopathy without gangrene; I49.5 Sick sinus syndrome; I12.0 Hypertensive chronic kidney disease with stage 5 chronic kidney disease or end stage renal disease; N18.6 End stage renal disease; I48.0 Paroxysmal atrial fibrillation; E78.5 Hyperlipidemia, unspecified; E11.21 Type 2 diabetes mellitus with diabetic nephropathy; Z95.0 Presence of cardiac pacemaker; Z83.3 Family history of diabetes mellitus; Z98.42 Cataract extraction status, left eye; Z99.2 Dependence on renal dialysis; Z79.899 Other long term (current) drug therapy; Z79.01 Long term (current) use of anticoagulants; Z98.890 Other specified postprocedural states; Z79.4 Long term (current) use of insulin
CPT/HCPCS: 36415; 71045; 80048; 81001; 82948 ×2; 85025; 85610; 85730; 93005; 93458; A4215; A4216; A4221; A4222; A4223 ×3; A4606; A4663; C1760; C1894; J1644; J1815; J2175 ×2; J2250 ×2; J3490 ×4; J7030; Q9965; Q9967 ×2; 99156; 99157

== ENCOUNTER 2021-03-25 05:55 | Emergency (ER) | payer OTHER ==
[~2021-03-25] VITALS: Ht 167.6 cm; Wt 58.5 kg
[~2021-03-25 05:55] MED LIST changes: -0.9%NACL 1000ML 1,000 ML IV SCH; +CALC667C10 PO; +HUMALOG SQ; +INSLAN SQ; +LISI40TA9 PO
[2021-03-25 06:15] LABS: BASOPHILS % (AUTO) 0.5 % (0.0-5.0); EOSINOPHILS % (AUTO) 2.7 % (0.0-8.0); LYMPHOCYTES % (AUTO) 11.6 % (21.0-51.0); MEAN CORPUSCULAR HEMOGLOBIN 32.1 pg (27.0-33.0); MEAN CORPUSCULAR HGB CONC 31.8 g/dL (32.0-36.0); MEAN CORPUSCULAR VOLUME 100.9 fL (79-99); MONOCYTES % (AUTO) 7.6 % (3.0-13.0); NEUTROPHILS % (AUTO) 77.1 % (40.0-77.0); PLATELET COUNT (AUTO) 164 K/uL (130-400); RED BLOOD CELL COUNT(AUTO) 3.27 MIL/uL (4.50-6.20); RED CELL DISTRIBUTION WIDTH 13.4 % (11.0-15.5); WHITE BLOOD COUNT (AUTO) 9.6 K/uL (4.8-10.8)
[2021-03-25 06:26] LABS: ALBUMIN 3.3 g/dL (3.5-5.0); POTASSIUM 4.8 mmol/L (3.5-5.1)
[2021-03-25 06:28] LABS: CREATININE 8.6 mg/dL (0.5-1.5)
[2021-03-25] MEDS ORDERED: CLONIDINE HCL 0.1 MG TABLET PO ONE (06:30)
[2021-03-25 06:33] LABS: BILIRUBIN,TOTAL 0.5 mg/dL (0.2-1.0); TOTAL PROTEIN, SERUM 6.9 g/dL (6.0-8.3)
[2021-03-25] MEDS ORDERED: HYDRALAZINE HCL 10 MG TABLET PO SCH (08:00)
[2021-03-25] MEDS ORDERED: HYDRALAZINE HCL 10 MG TABLET ONE (08:06)
[2021-03-25 09:21] VITALS: BP 200/65
== END 2021-03-25 09:44 | disposition home or self-care (01) ==
LOC: EDH 05:55
DX: I12.0 Hypertensive chronic kidney disease with stage 5 chronic kidney disease or end stage renal disease (principal); E11.22 Type 2 diabetes mellitus with diabetic chronic kidney disease; N18.6 End stage renal disease; R53.81 Other malaise; J44.9 Chronic obstructive pulmonary disease, unspecified; Z79.01 Long term (current) use of anticoagulants; Z79.4 Long term (current) use of insulin; Z79.899 Other long term (current) drug therapy; Z95.810 Presence of automatic (implantable) cardiac defibrillator; Z99.2 Dependence on renal dialysis
CPT/HCPCS: 36415 ×2; 70450 ×2; 71045; 80053 ×2; 82948; 84484 ×2; 85025 ×2; 93005 ×2; 99284 ×2; J1815

== ENCOUNTER 2022-01-04 01:55 | Emergency (ER) | payer OTHER ==
[~2022-01-04] VITALS: Ht 162.6 cm; Wt 57.2 kg
[~2022-01-04 01:55] MED LIST changes: +AEC81 PO; +FOLI0.8T2 PO; +HYDR-4153 PO; -LISI40TA9 PO; -SIMV10TA97 PO; -VITA-395 PO; +VITAMIN D
[2022-01-04] MEDS ORDERED: ONDANSETRON 4MG INJ IVP ONE (02:30)
[2022-01-04 02:39] LABS: BASOPHILS % (AUTO) 0.8 % (0.0-5.0); EOSINOPHILS % (AUTO) 3.9 % (0.0-8.0); LYMPHOCYTES % (AUTO) 17.3 % (21.0-51.0); MEAN CORPUSCULAR HEMOGLOBIN 30.7 pg (27.0-33.0); MEAN CORPUSCULAR HGB CONC 33.1 g/dL (32.0-36.0); MEAN CORPUSCULAR VOLUME 92.9 fL (79-99); MONOCYTES % (AUTO) 13.4 % (3.0-13.0); NEUTROPHILS % (AUTO) 64.3 % (40.0-77.0); PLATELET COUNT (AUTO) 141 K/uL (130-400); RED CELL DISTRIBUTION WIDTH 13.1 % (11.0-15.5); WHITE BLOOD COUNT (AUTO) 7.4 K/uL (4.8-10.8)
[2022-01-04 02:49] LABS: CREATININE 5.9 mg/dL (0.5-1.5); POTASSIUM 4.4 mmol/L (3.5-5.1)
[2022-01-04 02:54] LABS: ALBUMIN 3.9 g/dL (3.5-5.0); TOTAL PROTEIN, SERUM 7.5 g/dL (6.0-8.3)
[2022-01-04] MEDS ORDERED: IPRATROPIUM/ALBUTEROL SULFATE 3 ML SOLUTION IH ONE (03:30)
[2022-01-04 04:22] VITALS: BP 179/85
== END 2022-01-04 08:20 | disposition home or self-care (01) ==
LOC: EDH 01:55
DX: J45.909 Unspecified asthma, uncomplicated (principal); R11.2 Nausea with vomiting, unspecified; I12.0 Hypertensive chronic kidney disease with stage 5 chronic kidney disease or end stage renal disease; E11.22 Type 2 diabetes mellitus with diabetic chronic kidney disease; N18.6 End stage renal disease; E78.00 Pure hypercholesterolemia, unspecified; Z79.01 Long term (current) use of anticoagulants; Z79.4 Long term (current) use of insulin; Z79.82 Long term (current) use of aspirin; Z95.810 Presence of automatic (implantable) cardiac defibrillator; Z99.2 Dependence on renal dialysis
CPT/HCPCS: 99283; 96374; 71045; 80053; 85025; 36415; 94640; J2405

== ENCOUNTER → 2022-12-16 | Outpatient (CLI) | payer OTHER ==
[~2022-12-16] MED LIST changes: +FOLI0.8T43 PO; -INSLAN SQ; +INSU100V52 SQ; +LIDOCAINE HCL 4% LTA SOL 4 ML VIAL TP ONE; +SEVE800T27 PO; +VITA-348 PO
== END | disposition home or self-care (01) ==
LOC: WHH 10:37
PROVIDERS: ATTEND Nurse Practitioner Family
DX: E11.622 Type 2 diabetes mellitus with other skin ulcer (principal); L97.812 Non-pressure chronic ulcer of other part of right lower leg with fat layer exposed; L97.821 Non-pressure chronic ulcer of other part of left lower leg limited to breakdown of skin; E11.621 Type 2 diabetes mellitus with foot ulcer; L97.521 Non-pressure chronic ulcer of other part of left foot limited to breakdown of skin; S51.812A Laceration without foreign body of left forearm, initial encounter; E11.22 Type 2 diabetes mellitus with diabetic chronic kidney disease; I13.2 Hypertensive heart and chronic kidney disease with heart failure and with stage 5 chronic kidney disease, or end stage renal disease; N18.6 End stage renal disease; I50.89 Other heart failure; I25.10 Atherosclerotic heart disease of native coronary artery without angina pectoris; E78.00 Pure hypercholesterolemia, unspecified; I48.91 Unspecified atrial fibrillation; Z89.422 Acquired absence of other left toe(s); Z89.421 Acquired absence of other right toe(s); Z85.46 Personal history of malignant neoplasm of prostate; Z95.0 Presence of cardiac pacemaker; Z79.899 Other long term (current) drug therapy; X58.XXXA Exposure to other specified factors, initial encounter; Y93.89 Activity, other specified; Y92.89 Other specified places as the place of occurrence of the external cause; Y99.8 Other external cause status
CPT/HCPCS: G0463; A6248; A6196; A6197 ×6; A4450

== ENCOUNTER → 2022-12-23 | Outpatient (CLI) | payer OTHER | END | disposition home or self-care (01) | LOC: WHH 10:00 | PROVIDERS: ATTEND Nurse Practitioner Family | DX: E11.622 Type 2 diabetes mellitus with other skin ulcer (principal); L97.812 Non-pressure chronic ulcer of other part of right lower leg with fat layer exposed; L97.822 Non-pressure chronic ulcer of other part of left lower leg with fat layer exposed; E11.621 Type 2 diabetes mellitus with foot ulcer; L97.522 Non-pressure chronic ulcer of other part of left foot with fat layer exposed; S51.812D Laceration without foreign body of left forearm, subsequent encounter; E11.51 Type 2 diabetes mellitus with diabetic peripheral angiopathy without gangrene; E11.22 Type 2 diabetes mellitus with diabetic chronic kidney disease; I13.2 Hypertensive heart and chronic kidney disease with heart failure and with stage 5 chronic kidney disease, or end stage renal disease; I50.89 Other heart failure; N18.6 End stage renal disease; I25.10 Atherosclerotic heart disease of native coronary artery without angina pectoris; E78.00 Pure hypercholesterolemia, unspecified; I48.91 Unspecified atrial fibrillation; Z89.422 Acquired absence of other left toe(s); Z89.421 Acquired absence of other right toe(s); Z95.0 Presence of cardiac pacemaker; Z85.46 Personal history of malignant neoplasm of prostate; Z79.899 Other long term (current) drug therapy; X58.XXXD Exposure to other specified factors, subsequent encounter | CPT/HCPCS: G0463; A6209 ==

== ENCOUNTER → 2023-01-13 | Outpatient (CLI) | payer OTHER | END | disposition home or self-care (01) | LOC: WHH 08:53 | PROVIDERS: ATTEND Nurse Practitioner Family | DX: E11.622 Type 2 diabetes mellitus with other skin ulcer (principal); L97.812 Non-pressure chronic ulcer of other part of right lower leg with fat layer exposed; L97.822 Non-pressure chronic ulcer of other part of left lower leg with fat layer exposed; E11.621 Type 2 diabetes mellitus with foot ulcer; L97.522 Non-pressure chronic ulcer of other part of left foot with fat layer exposed; S51.812D Laceration without foreign body of left forearm, subsequent encounter; E11.51 Type 2 diabetes mellitus with diabetic peripheral angiopathy without gangrene; E11.22 Type 2 diabetes mellitus with diabetic chronic kidney disease; I13.2 Hypertensive heart and chronic kidney disease with heart failure and with stage 5 chronic kidney disease, or end stage renal disease; I50.89 Other heart failure; N18.6 End stage renal disease; I25.10 Atherosclerotic heart disease of native coronary artery without angina pectoris; E78.00 Pure hypercholesterolemia, unspecified; I48.91 Unspecified atrial fibrillation; Z89.422 Acquired absence of other left toe(s); Z89.421 Acquired absence of other right toe(s); Z95.0 Presence of cardiac pacemaker; Z85.46 Personal history of malignant neoplasm of prostate; Z79.899 Other long term (current) drug therapy; X58.XXXD Exposure to other specified factors, subsequent encounter | CPT/HCPCS: G0463; A6250; A6209 ==

== ENCOUNTER 2023-01-16 16:36 | Emergency (ER) | payer OTHER ==
[~2023-01-16] VITALS: Ht 165.1 cm; Wt 62.6 kg
[~2023-01-16 16:36] MED LIST changes: -LIDOCAINE HCL 4% LTA SOL 4 ML VIAL TP ONE
[2023-01-16] MEDS ORDERED: HYDROCODONE/ACETAMINOPHEN 5/325 MG TAB PO ONE (20:00)
[2023-01-16 20:11] LABS: BASOPHILS # (AUTO) 0.08 K/uL (0.00-0.20); BASOPHILS % (AUTO) 1.1 % (0.0-5.0); EOSINOPHILS # (AUTO) 0.13 K/uL (0.00-0.70); EOSINOPHILS % (AUTO) 1.7 % (0.0-8.0); HEMATOCRIT 35.5 % (42-54); IMMATURE GRANULOCYTE ABSOLUTE 0.03 K/uL (0-1); LYMPHOCYTES # (AUTO) 0.5 K/uL (1.0-4.8); LYMPHOCYTES % (AUTO) 6.5 % (21.0-51.0); MEAN CORPUSCULAR HEMOGLOBIN 33.6 pg (27.0-33.0); MEAN CORPUSCULAR HGB CONC 31.3 g/dL (32.0-36.0); MEAN CORPUSCULAR VOLUME 107.6 fL (79-99); MONOCYTES # (AUTO) 1.2 K/uL (0.1-1.0); MONOCYTES % (AUTO) 15.5 % (3.0-13.0); NEUTROPHILS # (AUTO) 5.6 K/uL (1.8-7.7); NEUTROPHILS % (AUTO) 74.8 % (40.0-77.0); PLATELET COUNT (AUTO) 177 K/uL (130-400); RED CELL DISTRIBUTION WIDTH 17.3 % (11.0-15.5); WHITE BLOOD COUNT (AUTO) 7.4 K/uL (4.8-10.8)
[2023-01-16 20:21] LABS: CREATININE 4.1 mg/dL (0.5-1.5); POTASSIUM 4.2 mmol/L (3.5-5.1)
[2023-01-16 20:34] LABS: MAGNESIUM 2.5 mg/dL (1.80-2.40); PHOSPHORUS 2.3 mg/dL (2.5-4.9); THYROID STIMULATING HORMONE 2.31 uIU/mL (0.36-3.74)
[2023-01-16 23:08] VITALS: BP 134/50; PULSE 80; RESP 14; O2SAT 96
== END 2023-01-16 23:31 | disposition home or self-care (01) ==
LOC: EDH 16:36
DX: I12.0 Hypertensive chronic kidney disease with stage 5 chronic kidney disease or end stage renal disease (principal); E11.22 Type 2 diabetes mellitus with diabetic chronic kidney disease; N18.5 Chronic kidney disease, stage 5; I25.10 Atherosclerotic heart disease of native coronary artery without angina pectoris; Z79.01 Long term (current) use of anticoagulants; Z79.82 Long term (current) use of aspirin; Z99.2 Dependence on renal dialysis; Z95.810 Presence of automatic (implantable) cardiac defibrillator
CPT/HCPCS: 36415; 72100; 72170; 72220; 73521; 74018; 80048; 83735; 84100; 84443; 85025

== ENCOUNTER → 2023-01-20 | Outpatient (CLI) | payer OTHER ==
[~2023-01-20] MED LIST changes: +LIDOCAINE HCL 4% LTA SOL 4 ML VIAL TP ONE
== END | disposition home or self-care (01) ==
LOC: WHH 10:07
PROVIDERS: ATTEND Nurse Practitioner Family
DX: E11.622 Type 2 diabetes mellitus with other skin ulcer (principal); L97.812 Non-pressure chronic ulcer of other part of right lower leg with fat layer exposed; L97.822 Non-pressure chronic ulcer of other part of left lower leg with fat layer exposed; E11.621 Type 2 diabetes mellitus with foot ulcer; L97.522 Non-pressure chronic ulcer of other part of left foot with fat layer exposed; E11.51 Type 2 diabetes mellitus with diabetic peripheral angiopathy without gangrene; E11.22 Type 2 diabetes mellitus with diabetic chronic kidney disease; I13.2 Hypertensive heart and chronic kidney disease with heart failure and with stage 5 chronic kidney disease, or end stage renal disease; I50.89 Other heart failure; N18.6 End stage renal disease; I25.10 Atherosclerotic heart disease of native coronary artery without angina pectoris; E78.00 Pure hypercholesterolemia, unspecified; I48.91 Unspecified atrial fibrillation; Z89.422 Acquired absence of other left toe(s); Z89.421 Acquired absence of other right toe(s); Z95.0 Presence of cardiac pacemaker; Z85.46 Personal history of malignant neoplasm of prostate; Z79.899 Other long term (current) drug therapy
CPT/HCPCS: 11042; A6209

== ENCOUNTER → 2023-01-22 | Outpatient (CLI) | payer OTHER ==
[~2023-01-22] MED LIST changes: -LIDOCAINE HCL 4% LTA SOL 4 ML VIAL TP ONE
== END | disposition home or self-care (01) ==
LOC: RAH 08:54
PROVIDERS: ATTEND Nurse Practitioner Family
DX: I70.203 Unspecified atherosclerosis of native arteries of extremities, bilateral legs (principal); L97.812 Non-pressure chronic ulcer of other part of right lower leg with fat layer exposed; L97.922 Non-pressure chronic ulcer of unspecified part of left lower leg with fat layer exposed
CPT/HCPCS: 93925; 93970

== ENCOUNTER 2023-01-25 02:17 | Inpatient (IN) | payer OTHER ==
[~2023-01-25] VITALS: Ht 165.1 cm; Wt 62.1 kg
[2023-01-25] VITALS (16 sets, daily range): BP systolic 118–162; BP diastolic 49–69; PULSE 75–78; RESP 18–22; TEMP 97.5–97.6; O2SAT 98–100
[2023-01-25 04:16] LABS: BASOPHILS # (AUTO) 0.05 K/uL (0.00-0.20); BASOPHILS % (AUTO) 0.4 % (0.0-5.0); EOSINOPHILS # (AUTO) 0.05 K/uL (0.00-0.70); EOSINOPHILS % (AUTO) 0.4 % (0.0-8.0); HEMATOCRIT 36.4 % (42-54); IMMATURE GRANULOCYTE ABSOLUTE 0.06 K/uL (0-1); LYMPHOCYTES # (AUTO) 0.2 K/uL (1.0-4.8); LYMPHOCYTES % (AUTO) 1.5 % (21.0-51.0); MEAN CORPUSCULAR HEMOGLOBIN 34.5 pg (27.0-33.0); MEAN CORPUSCULAR HGB CONC 32.1 g/dL (32.0-36.0); MEAN CORPUSCULAR VOLUME 107.4 fL (79-99); MONOCYTES # (AUTO) 0.7 K/uL (0.1-1.0); MONOCYTES % (AUTO) 5.2 % (3.0-13.0); NEUTROPHILS # (AUTO) 12.5 K/uL (1.8-7.7); NEUTROPHILS % (AUTO) 92.1 % (40.0-77.0); PLATELET COUNT (AUTO) 180 K/uL (130-400); RED BLOOD CELL COUNT(AUTO) 3.39 MIL/uL (4.50-6.20); RED CELL DISTRIBUTION WIDTH 17.9 % (11.0-15.5); WHITE BLOOD COUNT (AUTO) 13.5 K/uL (4.8-10.8)
[2023-01-25 04:37] LABS: BILIRUBIN,TOTAL 0.8 mg/dL (0.2-1.0); POTASSIUM 5.1 mmol/L (3.5-5.1); TOTAL PROTEIN, SERUM 7.1 g/dL (6.0-8.3)
[2023-01-25 04:49] LABS: CREATININE 9.4 mg/dL (0.5-1.5)
[2023-01-25] MEDS ORDERED: BENZONATATE 100 MG CAPSULE PO PRN (11:00)
[2023-01-25] MEDS: Vitamin B Complex/Vit C/Folic Acid PO SCH (17:47)
[2023-01-25] MEDS: INSULIN GLARGINE 100 UNITS/ML 10 ML VIAL SQ SCH (20:05)
[2023-01-25] MEDS: INSULIN HUMULIN R 100 UNIT/ML 3ML SQ SCH (20:05)
[2023-01-25] MEDS: APIXABAN 2.5 MG TABLET PO SCH (21:37)
[2023-01-26] VITALS (20 sets, daily range): BP systolic 125–152; BP diastolic 42–70; PULSE 75–76; RESP 18–21; TEMP 97.7–97.8; O2SAT 99
[2023-01-26] MEDS: INSULIN HUMULIN R 100 UNIT/ML 3ML SQ SCH ×4 (06:43→20:27)
[2023-01-26 06:56] LABS: BASOPHILS # (AUTO) 0.04 K/uL (0.00-0.20); BASOPHILS % (AUTO) 0.3 % (0.0-5.0); EOSINOPHILS # (AUTO) 0.03 K/uL (0.00-0.70); EOSINOPHILS % (AUTO) 0.2 % (0.0-8.0); HEMATOCRIT 34.5 % (42-54); IMMATURE GRANULOCYTE ABSOLUTE 0.14 K/uL (0-1); LYMPHOCYTES # (AUTO) 0.2 K/uL (1.0-4.8); LYMPHOCYTES % (AUTO) 1.4 % (21.0-51.0); MEAN CORPUSCULAR HEMOGLOBIN 33.8 pg (27.0-33.0); MEAN CORPUSCULAR HGB CONC 31.3 g/dL (32.0-36.0); MEAN CORPUSCULAR VOLUME 107.8 fL (79-99); MONOCYTES # (AUTO) 1.1 K/uL (0.1-1.0); MONOCYTES % (AUTO) 7.1 % (3.0-13.0); NEUTROPHILS # (AUTO) 14.1 K/uL (1.8-7.7); NEUTROPHILS % (AUTO) 90.1 % (40.0-77.0); PLATELET COUNT (AUTO) 181 K/uL (130-400); RED CELL DISTRIBUTION WIDTH 18.1 % (11.0-15.5); WHITE BLOOD COUNT (AUTO) 15.7 K/uL (4.8-10.8)
[2023-01-26 07:11] LABS: CREATININE 7.9 mg/dL (0.5-1.5); MAGNESIUM 2.5 mg/dL (1.80-2.40); POTASSIUM 4.9 mmol/L (3.5-5.1)
[2023-01-26] MEDS: Vitamin B Complex/Vit C/Folic Acid PO SCH (08:57)
[2023-01-26] MEDS: APIXABAN 2.5 MG TABLET PO SCH ×2 (08:57→20:27)
[2023-01-26] MEDS: VITAMIN E 400 UNIT CAPSULE PO SCH (08:57)
[2023-01-26] MEDS: SEVELAMER HCL 800 MG TABLET PO SCH ×3 (08:57→17:42)
[2023-01-26] MEDS: ASPIRIN 81 MG EC TAB PO SCH (08:57)
[2023-01-26] MEDS: LIDOCAINE 4% ADH..PATCH TP SCH (08:57)
[2023-01-26] MEDS ORDERED: METOPROLOL TARTRATE 25 MG TAB PO SCH (09:00)
[2023-01-26] MEDS ORDERED: FOLIC ACID PO SCH (09:00)
[2023-01-26] MEDS ORDERED: VIT BCOMP C PO SCH (09:00)
[2023-01-26] MEDS: BACITRACIN 28.4 GM OINT TP SCH (18:21)
[2023-01-26] MEDS ORDERED: DiphenhydrAMINE HCL 50 MG/ML VIAL IV PRN (18:30)
[2023-01-26] MEDS ORDERED: MAG/ALUM/SIMETH 30 ML UDCUP PO PRN (18:30)
[2023-01-26] MEDS ORDERED: HYDROCODONE/ACETAMINOPHEN 5/325 MG TAB PO PRN ×2 (18:30)
[2023-01-26] MEDS ORDERED: LACTULOSE 20 GM/30 ML UDCUP PO PRN (18:30)
[2023-01-26] MEDS ORDERED: GUAIFENESIN-DM 200/20 MG 10 ML PO PRN (18:30)
[2023-01-26] MEDS ORDERED: ACETAMINOPHEN 325 MG TAB PO PRN ×2 (18:30)
[2023-01-26] MEDS ORDERED: ONDANSETRON 4MG INJ IV PRN (18:30)
[2023-01-26] MEDS ORDERED: DIPHENHYDRAMINE HCL 25 MG CAPSULE PO PRN (18:30)
[2023-01-26] MEDS ORDERED: NITROGLYCERIN 0.4 MG SL TAB SL PRN (18:30)
[2023-01-26] MEDS: FAMOTIDINE 20MG TAB PO SCH (20:27)
[2023-01-26] MEDS: INSULIN GLARGINE 100 UNITS/ML 10 ML VIAL SQ SCH (20:28)
[2023-01-26] MEDS ORDERED: FAMOTIDINE 20MG VIAL IV PRN (21:00)
[2023-01-26] MEDS: HYDROMORPHONE 1 MG INJ IV PRN (23:14)
[2023-01-27] VITALS (9 sets, daily range): BP systolic 92–136; BP diastolic 45–60; PULSE 51–77; RESP 15–20; O2SAT 94
[2023-01-27 06:15] LABS: BASOPHILS # (AUTO) 0.03 K/uL (0.00-0.20); BASOPHILS % (AUTO) 0.2 % (0.0-5.0); EOSINOPHILS # (AUTO) 0.06 K/uL (0.00-0.70); EOSINOPHILS % (AUTO) 0.4 % (0.0-8.0); HEMATOCRIT 35.7 % (42-54); IMMATURE GRANULOCYTE ABSOLUTE 0.32 K/uL (0-1); LYMPHOCYTES # (AUTO) 0.2 K/uL (1.0-4.8); LYMPHOCYTES % (AUTO) 1.4 % (21.0-51.0); MEAN CORPUSCULAR HEMOGLOBIN 34.4 pg (27.0-33.0); MEAN CORPUSCULAR HGB CONC 31.1 g/dL (32.0-36.0); MEAN CORPUSCULAR VOLUME 110.5 fL (79-99); MONOCYTES # (AUTO) 1.2 K/uL (0.1-1.0); MONOCYTES % (AUTO) 7.1 % (3.0-13.0); NEUTROPHILS # (AUTO) 15.1 K/uL (1.8-7.7); PLATELET COUNT (AUTO) 149 K/uL (130-400); RED BLOOD CELL COUNT(AUTO) 3.23 MIL/uL (4.50-6.20); RED CELL DISTRIBUTION WIDTH 18.1 % (11.0-15.5)
[2023-01-27 06:28] LABS: CREATININE 6.8 mg/dL (0.5-1.5); MAGNESIUM 2.4 mg/dL (1.80-2.40); PHOSPHORUS 6.5 mg/dL (2.5-4.9); POTASSIUM 4.6 mmol/L (3.5-5.1)
[2023-01-27] MEDS: INSULIN HUMULIN R 100 UNIT/ML 3ML SQ SCH ×4 (06:32→20:27)
[2023-01-27 07:18] LABS: HEPATITIS Bs ANTIGEN SCREEN P Negative (Negative)
[2023-01-27] MEDS: SEVELAMER HCL 800 MG TABLET PO SCH ×3 (08:09→17:28)
[2023-01-27] MEDS: APIXABAN 2.5 MG TABLET PO SCH (08:09)
[2023-01-27] MEDS: Vitamin B Complex/Vit C/Folic Acid PO SCH (08:09)
[2023-01-27] MEDS: ASPIRIN 81 MG EC TAB PO SCH (08:09)
[2023-01-27] MEDS: LIDOCAINE 4% ADH..PATCH TP SCH (08:09)
[2023-01-27] MEDS: VITAMIN E 400 UNIT CAPSULE PO SCH (08:09)
[2023-01-27] MEDS: BACITRACIN 28.4 GM OINT TP SCH ×2 (08:10→21:00)
[2023-01-27] MEDS: MIDODRINE HCL 5 MG TABLET PO SCH ×3 (09:58→20:19)
[2023-01-27] MEDS: ZOSYN 3.375GM +NS 50ML IV SCH (13:48)
[2023-01-27 14:15] LABS: INR 3.37 (0.85-1.15)
[2023-01-27 14:16] LABS: PARTIAL THROMBOPLASTIN TIME 45.3 SEC (26.3-35.5)
[2023-01-27 14:17] LABS: PROTHROMBIN TIME 36.1 SEC (9.6-11.6)
[2023-01-27 14:26] LABS: SARS-CoV-2, RNA, NAAT NEGATIVE SARS CoV-2 (NEGATIVE)
[2023-01-27] MEDS ORDERED: CLOPIDOGREL 75MG TAB PO ONE (14:30)
[2023-01-27 14:31] LABS: INFLUENZA TYPE A Negative For Type A (NEGATIVE); INFLUENZA TYPE B Negative For Type B (NEGATIVE)
[2023-01-27] MEDS: ATORVASTATIN 40 MG TABLET PO SCH (20:17)
[2023-01-27] MEDS: FAMOTIDINE 20MG TAB PO SCH (20:17)
[2023-01-27] MEDS: INSULIN GLARGINE 100 UNITS/ML 10 ML VIAL SQ SCH (20:30)
[2023-01-28] VITALS (23 sets, daily range): BP systolic 108–136; BP diastolic 48–62; PULSE 70–76; RESP 16–20; TEMP 96.9–97.9; O2SAT 94–99
[2023-01-28] MEDS: ZOSYN 3.375GM +NS 50ML IV SCH ×2 (02:10→13:13)
[2023-01-28 04:46] LABS: BASOPHILS # (AUTO) 0.04 K/uL (0.00-0.20); BASOPHILS % (AUTO) 0.2 % (0.0-5.0); EOSINOPHILS # (AUTO) 0.14 K/uL (0.00-0.70); EOSINOPHILS % (AUTO) 0.8 % (0.0-8.0); HEMATOCRIT 36.4 % (42-54); IMMATURE GRANULOCYTE ABSOLUTE 0.31 K/uL (0-1); LYMPHOCYTES # (AUTO) 0.3 K/uL (1.0-4.8); LYMPHOCYTES % (AUTO) 1.7 % (21.0-51.0); MEAN CORPUSCULAR HEMOGLOBIN 33.8 pg (27.0-33.0); MEAN CORPUSCULAR HGB CONC 32.4 g/dL (32.0-36.0); MEAN CORPUSCULAR VOLUME 104.3 fL (79-99); MONOCYTES # (AUTO) 1.5 K/uL (0.1-1.0); MONOCYTES % (AUTO) 8.7 % (3.0-13.0); NEUTROPHILS # (AUTO) 15.3 K/uL (1.8-7.7); NEUTROPHILS % (AUTO) 86.8 % (40.0-77.0); NUCLEATED RED BLOOD CELLS 0.2 % (0.0-0.19); PLATELET COUNT (AUTO) 167 K/uL (130-400); RED BLOOD CELL COUNT(AUTO) 3.49 MIL/uL (4.50-6.20); RED CELL DISTRIBUTION WIDTH 17.6 % (11.0-15.5); WHITE BLOOD COUNT (AUTO) 17.6 K/uL (4.8-10.8)
[2023-01-28 04:52] LABS: PARTIAL THROMBOPLASTIN TIME 48.2 SEC (26.3-35.5)
[2023-01-28 04:55] LABS: ALBUMIN 2.5 g/dL (3.5-5.0); BILIRUBIN,TOTAL 1.8 mg/dL (0.2-1.0); CREATININE 7.3 mg/dL (0.5-1.5); POTASSIUM 4.2 mmol/L (3.5-5.1); TOTAL PROTEIN, SERUM 6.1 g/dL (6.0-8.3)
[2023-01-28 05:36] LABS: PROTHROMBIN TIME 39.4 SEC (9.6-11.6)
[2023-01-28 05:37] LABS: INR 3.7 (0.85-1.15)
[2023-01-28] MEDS: INSULIN HUMULIN R 100 UNIT/ML 3ML SQ SCH ×4 (05:43→19:34)
[2023-01-28 06:50] LABS: ACETAMINOPHEN 2 mcg/mL (10-29)
[2023-01-28 06:51] LABS: SALICYLATE < 2.8 mg/dL (2.8-20.0)
[2023-01-28] MEDS ORDERED: VANCOMYCIN PROTOCOL PER PHARMACY IV SCH (07:00)
[2023-01-28] MEDS ORDERED: VANCOMYCIN 1G/250ML KIT 250 ML IV ONE (07:30)
[2023-01-28] MEDS: ATORVASTATIN 40 MG TABLET PO SCH (07:50)
[2023-01-28] MEDS: SEVELAMER HCL 800 MG TABLET PO SCH ×3 (08:00→17:54)
[2023-01-28] MEDS ORDERED: CLOPIDOGREL 75MG TAB PO SCH (09:00)
[2023-01-28] MEDS: MIDODRINE HCL 5 MG TABLET PO SCH ×3 (10:01→20:37)
[2023-01-28] MEDS: Vitamin B Complex/Vit C/Folic Acid PO SCH (13:14)
[2023-01-28] MEDS: ASPIRIN 81 MG EC TAB PO SCH (13:16)
[2023-01-28] MEDS: VITAMIN E 400 UNIT CAPSULE PO SCH (13:16)
[2023-01-28] MEDS: BACITRACIN 28.4 GM OINT TP SCH ×2 (13:17→20:42)
[2023-01-28] MEDS: LIDOCAINE 4% ADH..PATCH TP SCH (13:17)
[2023-01-28] MEDS: FAMOTIDINE 20MG TAB PO SCH (20:37)
[2023-01-28] MEDS: INSULIN GLARGINE 100 UNITS/ML 10 ML VIAL SQ SCH (20:39)
[2023-01-29] VITALS (12 sets, daily range): BP systolic 94–135; BP diastolic 40–53; PULSE 70–106; RESP 16–18; O2SAT 96
[2023-01-29] MEDS: ZOSYN 3.375GM +NS 50ML IV SCH ×2 (01:57→13:11)
[2023-01-29 04:01] LABS: BASOPHILS % (AUTO) 0.7 % (0.0-5.0); EOSINOPHILS # (AUTO) 0.16 K/uL (0.00-0.70); EOSINOPHILS % (AUTO) 1.1 % (0.0-8.0); HEMATOCRIT 34.5 % (42-54); IMMATURE GRANULOCYTE ABSOLUTE 0.12 K/uL (0-1); LYMPHOCYTES # (AUTO) 0.4 K/uL (1.0-4.8); LYMPHOCYTES % (AUTO) 2.5 % (21.0-51.0); MEAN CORPUSCULAR HEMOGLOBIN 34.3 pg (27.0-33.0); MEAN CORPUSCULAR HGB CONC 33.3 g/dL (32.0-36.0); MONOCYTES % (AUTO) 13.8 % (3.0-13.0); NEUTROPHILS # (AUTO) 11.9 K/uL (1.8-7.7); NEUTROPHILS % (AUTO) 81.1 % (40.0-77.0); PLATELET COUNT (AUTO) 147 K/uL (130-400); RED BLOOD CELL COUNT(AUTO) 3.35 MIL/uL (4.50-6.20); RED CELL DISTRIBUTION WIDTH 17.2 % (11.0-15.5); WHITE BLOOD COUNT (AUTO) 14.7 K/uL (4.8-10.8)
[2023-01-29 04:19] LABS: INR 2.36 (0.85-1.15); PROTHROMBIN TIME 25.9 SEC (9.6-11.6)
[2023-01-29 04:20] LABS: PARTIAL THROMBOPLASTIN TIME 48.5 SEC (26.3-35.5)
[2023-01-29 04:25] LABS: ALBUMIN 2.2 g/dL (3.5-5.0); BILIRUBIN,DIRECT 1.2 mg/dL (0.0-0.3); CREATININE 5.6 mg/dL (0.5-1.5); POTASSIUM 3.6 mmol/L (3.5-5.1); TOTAL PROTEIN, SERUM 5.5 g/dL (6.0-8.3)
[2023-01-29] MEDS: INSULIN HUMULIN R 100 UNIT/ML 3ML SQ SCH ×4 (06:13→20:09)
[2023-01-29] MEDS ORDERED: MIDAZOLAM HCL 1 MG/ML 2ML VIAL IVP ONE (08:00)
[2023-01-29] MEDS: SEVELAMER HCL 800 MG TABLET PO SCH ×3 (08:00→17:15)
[2023-01-29] MEDS ORDERED: LIDOCAINE HCL 2% VISCOUS 15 ML UDCUP PO ONE (08:00)
[2023-01-29] MEDS ORDERED: FENTANYL CITRATE PF 50 MCG/1 ML 2ML VIAL IVP ONE (08:00)
[2023-01-29] MEDS: MIDODRINE HCL 5 MG TABLET PO SCH ×3 (09:00→20:12)
[2023-01-29] MEDS: LIDOCAINE 4% ADH..PATCH TP SCH (10:42)
[2023-01-29 11:24] LABS: ALBUMIN 2.2 g/dL (3.5-5.0); BILIRUBIN,TOTAL 1.9 mg/dL (0.2-1.0); CREATININE 5.9 mg/dL (0.5-1.5); POTASSIUM 3.6 mmol/L (3.5-5.1); TOTAL PROTEIN, SERUM 5.8 g/dL (6.0-8.3)
[2023-01-29] MEDS ORDERED: DEXTROSE 50%-WATER 50 ML DISP.SYRIN IV ONE (11:31)
[2023-01-29] MEDS: BACITRACIN 28.4 GM OINT TP SCH ×2 (12:05→20:20)
[2023-01-29] MEDS ORDERED: LIDOCAINE 4% ADH..PATCH TP ONE (14:30)
[2023-01-29] MEDS: VITAMIN E 400 UNIT CAPSULE PO SCH (17:10)
[2023-01-29] MEDS: Vitamin B Complex/Vit C/Folic Acid PO SCH (17:10)
[2023-01-29] MEDS: ASPIRIN 81 MG EC TAB PO SCH (17:11)
[2023-01-29] MEDS: FAMOTIDINE 20MG TAB PO SCH (20:12)
[2023-01-29] MEDS: INSULIN GLARGINE 100 UNITS/ML 10 ML VIAL SQ SCH (20:13)
[2023-01-30] VITALS (21 sets, daily range): BP systolic 113–166; BP diastolic 46–64; PULSE 75–80; RESP 16–18; TEMP 97.7–97.9; O2SAT 96
[2023-01-30] MEDS: ZOSYN 3.375GM +NS 50ML IV SCH ×2 (01:30→14:37)
[2023-01-30 04:50] LABS: ALBUMIN 2.2 g/dL (3.5-5.0); BILIRUBIN,DIRECT 1.1 mg/dL (0.0-0.3); BILIRUBIN,TOTAL 1.8 mg/dL (0.2-1.0); TOTAL PROTEIN, SERUM 5.9 g/dL (6.0-8.3)
[2023-01-30 04:57] LABS: INR 1.68 (0.85-1.15); PROTHROMBIN TIME 18.8 SEC (9.6-11.6)
[2023-01-30 04:58] LABS: PARTIAL THROMBOPLASTIN TIME 46.6 SEC (26.3-35.5)
[2023-01-30] MEDS ORDERED: DEXTROSE 50%-WATER 50 ML DISP.SYRIN IV ONE (05:25)
[2023-01-30 07:05] LABS: HEMATOCRIT 38.6 % (42-54); MEAN CORPUSCULAR HEMOGLOBIN 33.9 pg (27.0-33.0); MEAN CORPUSCULAR HGB CONC 32.9 g/dL (32.0-36.0); MEAN CORPUSCULAR VOLUME 102.9 fL (79-99); RED BLOOD CELL COUNT(AUTO) 3.75 MIL/uL (4.50-6.20); RED CELL DISTRIBUTION WIDTH 17.3 % (11.0-15.5); WHITE BLOOD COUNT (AUTO) 15.6 K/uL (4.8-10.8)
[2023-01-30 07:14] LABS: CREATININE 6.4 mg/dL (0.5-1.5); POTASSIUM 3.7 mmol/L (3.5-5.1)
[2023-01-30] MEDS: INSULIN HUMULIN R 100 UNIT/ML 3ML SQ SCH ×4 (07:30→21:00)
[2023-01-30] MEDS: SEVELAMER HCL 800 MG TABLET PO SCH ×3 (08:36→17:40)
[2023-01-30] MEDS: Vitamin B Complex/Vit C/Folic Acid PO SCH (08:36)
[2023-01-30] MEDS: VITAMIN E 400 UNIT CAPSULE PO SCH (08:36)
[2023-01-30] MEDS: MIDODRINE HCL 5 MG TABLET PO SCH ×3 (08:37→20:25)
[2023-01-30] MEDS: ASPIRIN 81 MG EC TAB PO SCH (08:37)
[2023-01-30] MEDS: LIDOCAINE 4% ADH..PATCH TP SCH (08:37)
[2023-01-30] MEDS: BACITRACIN 28.4 GM OINT TP SCH (08:43)
[2023-01-30 12:56] LABS: ALBUMIN 2.3 g/dL (3.5-5.0); BILIRUBIN,TOTAL 1.8 mg/dL (0.2-1.0); TOTAL PROTEIN, SERUM 6.2 g/dL (6.0-8.3)
[2023-01-30] MEDS: VANCOMYCIN 500MG+NS 100ML 100 ML IV SCH (16:00)
[2023-01-30] MEDS: FAMOTIDINE 20MG TAB PO SCH (20:25)
[2023-01-31] VITALS (9 sets, daily range): BP systolic 125–155; BP diastolic 46–86; PULSE 75–90; RESP 16–18; O2SAT 96–99
[2023-01-31] MEDS: BACITRACIN 28.4 GM OINT TP SCH ×3 (00:01→20:08)
[2023-01-31] MEDS: ZOSYN 3.375GM +NS 50ML IV SCH ×2 (01:10→13:00)
[2023-01-31 05:53] LABS: BASOPHILS # (AUTO) 0.04 K/uL (0.00-0.20); BASOPHILS % (AUTO) 0.2 % (0.0-5.0); EOSINOPHILS # (AUTO) 0.06 K/uL (0.00-0.70); EOSINOPHILS % (AUTO) 0.3 % (0.0-8.0); HEMATOCRIT 37.1 % (42-54); LYMPHOCYTES # (AUTO) 0.4 K/uL (1.0-4.8); MEAN CORPUSCULAR HEMOGLOBIN 33.5 pg (27.0-33.0); MEAN CORPUSCULAR HGB CONC 32.6 g/dL (32.0-36.0); MEAN CORPUSCULAR VOLUME 102.8 fL (79-99); MONOCYTES # (AUTO) 3.4 K/uL (0.1-1.0); MONOCYTES % (AUTO) 19.4 % (3.0-13.0); NEUTROPHILS # (AUTO) 13.6 K/uL (1.8-7.7); PLATELET COUNT (AUTO) 91 K/uL (130-400); RED BLOOD CELL COUNT(AUTO) 3.61 MIL/uL (4.50-6.20); WHITE BLOOD COUNT (AUTO) 17.7 K/uL (4.8-10.8)
[2023-01-31] MEDS: INSULIN HUMULIN R 100 UNIT/ML 3ML SQ SCH ×4 (06:01→20:07)
[2023-01-31 06:06] LABS: INR 1.6 (0.85-1.15)
[2023-01-31 06:08] LABS: PARTIAL THROMBOPLASTIN TIME 43.9 SEC (26.3-35.5)
[2023-01-31 06:17] LABS: ALBUMIN 2.2 g/dL (3.5-5.0); BILIRUBIN,DIRECT 1.4 mg/dL (0.0-0.3); BILIRUBIN,TOTAL 2.4 mg/dL (0.2-1.0); CREATININE 4.9 mg/dL (0.5-1.5); MAGNESIUM 2.1 mg/dL (1.80-2.40); PHOSPHORUS 3.9 mg/dL (2.5-4.9); TOTAL PROTEIN, SERUM 5.8 g/dL (6.0-8.3)
[2023-01-31] MEDS: MIDODRINE HCL 5 MG TABLET PO SCH ×3 (08:03→21:00)
[2023-01-31] MEDS: Vitamin B Complex/Vit C/Folic Acid PO SCH (08:03)
[2023-01-31] MEDS: VITAMIN E 400 UNIT CAPSULE PO SCH (08:03)
[2023-01-31] MEDS: LIDOCAINE 4% ADH..PATCH TP SCH (08:03)
[2023-01-31] MEDS: ASPIRIN 81 MG EC TAB PO SCH (08:03)
[2023-01-31] MEDS: SEVELAMER HCL 800 MG TABLET PO SCH ×3 (08:03→16:55)
[2023-01-31] MEDS: HYDROMORPHONE 1 MG INJ IV PRN (13:38)
[2023-01-31 15:01] LABS: BODY FLUID WBC 2150 /cu. mm.
[2023-01-31 15:03] LABS: GLUCOSE PLEURAL FLUID 136; PROTEIN PLEURAL FLUID 3.3 mg/dL
[2023-01-31 16:24] LABS: APPEARANCE BODY FLUID BLOODY (CLEAR); COLOR,BODY FLUID RED (LT YELLOW); SPECIMENTYPE,BODY FLUID PLEURAL; TOTAL VOLUME,BODY FLUID 2000 mL
[2023-01-31 16:35] LABS: PH PLEURAL FLUID 7
[2023-01-31 17:40] LABS: BF LYMPHOCYTE 2 %; BF TOTAL CELLS COUNTED 100
[2023-01-31] MEDS: FAMOTIDINE 20MG TAB PO SCH (20:05)
[2023-02-01] VITALS (9 sets, daily range): BP systolic 107–140; BP diastolic 48–62; PULSE 75; RESP 16–18; O2SAT 92–98
[2023-02-01] MEDS: ZOSYN 3.375GM +NS 50ML IV SCH ×2 (01:08→12:19)
[2023-02-01 03:52] LABS: BASOPHILS # (AUTO) 0.02 K/uL (0.00-0.20); BASOPHILS % (AUTO) 0.1 % (0.0-5.0); EOSINOPHILS # (AUTO) 0.14 K/uL (0.00-0.70); HEMATOCRIT 29.7 % (42-54); LYMPHOCYTES # (AUTO) 0.6 K/uL (1.0-4.8); LYMPHOCYTES % (AUTO) 4.5 % (21.0-51.0); MEAN CORPUSCULAR HEMOGLOBIN 33.6 pg (27.0-33.0); MEAN CORPUSCULAR HGB CONC 33.7 g/dL (32.0-36.0); MEAN CORPUSCULAR VOLUME 99.7 fL (79-99); MONOCYTES % (AUTO) 21.8 % (3.0-13.0); NEUTROPHILS # (AUTO) 9.7 K/uL (1.8-7.7); NEUTROPHILS % (AUTO) 71.1 % (40.0-77.0); PLATELET COUNT (AUTO) 85 K/uL (130-400); RED BLOOD CELL COUNT(AUTO) 2.98 MIL/uL (4.50-6.20); RED CELL DISTRIBUTION WIDTH 16.7 % (11.0-15.5); WHITE BLOOD COUNT (AUTO) 13.6 K/uL (4.8-10.8)
[2023-02-01 04:05] LABS: INR 1.41 (0.85-1.15)
[2023-02-01 04:07] LABS: PARTIAL THROMBOPLASTIN TIME 41.6 SEC (26.3-35.5)
[2023-02-01 04:09] LABS: BILIRUBIN,TOTAL 2.2 mg/dL (0.2-1.0); CREATININE 5.8 mg/dL (0.5-1.5); POTASSIUM 4.3 mmol/L (3.5-5.1); TOTAL PROTEIN, SERUM 5.7 g/dL (6.0-8.3)
[2023-02-01] MEDS: INSULIN HUMULIN R 100 UNIT/ML 3ML SQ SCH ×4 (06:11→21:26)
[2023-02-01] MEDS: SEVELAMER HCL 800 MG TABLET PO SCH ×3 (08:18→16:17)
[2023-02-01] MEDS: LIDOCAINE 4% ADH..PATCH TP SCH (08:18)
[2023-02-01] MEDS: Vitamin B Complex/Vit C/Folic Acid PO SCH (08:18)
[2023-02-01] MEDS: VITAMIN E 400 UNIT CAPSULE PO SCH (08:18)
[2023-02-01] MEDS: BACITRACIN 28.4 GM OINT TP SCH ×2 (08:19→21:35)
[2023-02-01] MEDS: ASPIRIN 81 MG EC TAB PO SCH (08:19)
[2023-02-01] MEDS: MIDODRINE HCL 5 MG TABLET PO SCH ×3 (09:00→21:00)
[2023-02-01] MEDS: FAMOTIDINE 20MG TAB PO SCH (21:16)
[2023-02-01] MEDS: GABAPENTIN 100 MG CAPSULE PO SCH (21:17)
[2023-02-02] VITALS (21 sets, daily range): BP systolic 112–146; BP diastolic 41–63; PULSE 74–76; RESP 16–20; TEMP 96.7–98.2; O2SAT 100
[2023-02-02] MEDS: ZOSYN 3.375GM +NS 50ML IV SCH ×2 (01:05→13:37)
[2023-02-02 05:05] LABS: BASOPHILS # (AUTO) 0.03 K/uL (0.00-0.20); BASOPHILS % (AUTO) 0.2 % (0.0-5.0); EOSINOPHILS # (AUTO) 0.31 K/uL (0.00-0.70); EOSINOPHILS % (AUTO) 2.4 % (0.0-8.0); HEMATOCRIT 26.9 % (42-54); IMMATURE GRANULOCYTE ABSOLUTE 0.07 K/uL (0-1); LYMPHOCYTES # (AUTO) 0.6 K/uL (1.0-4.8); LYMPHOCYTES % (AUTO) 4.6 % (21.0-51.0); MEAN CORPUSCULAR HEMOGLOBIN 34.7 pg (27.0-33.0); MEAN CORPUSCULAR HGB CONC 34.6 g/dL (32.0-36.0); MEAN CORPUSCULAR VOLUME 100.4 fL (79-99); MONOCYTES # (AUTO) 2.9 K/uL (0.1-1.0); NEUTROPHILS # (AUTO) 9.2 K/uL (1.8-7.7); NEUTROPHILS % (AUTO) 70.3 % (40.0-77.0); PLATELET COUNT (AUTO) 78 K/uL (130-400); RED BLOOD CELL COUNT(AUTO) 2.68 MIL/uL (4.50-6.20); RED CELL DISTRIBUTION WIDTH 16.5 % (11.0-15.5); WHITE BLOOD COUNT (AUTO) 13.1 K/uL (4.8-10.8)
[2023-02-02 05:53] LABS: ALBUMIN 1.7 g/dL (3.5-5.0); BILIRUBIN,TOTAL 1.5 mg/dL (0.2-1.0); CREATININE 6.8 mg/dL (0.5-1.5); POTASSIUM 4.3 mmol/L (3.5-5.1); TOTAL PROTEIN, SERUM 5.1 g/dL (6.0-8.3); VANCOMYCIN TROUGH 8.1 UG/ML (10.0-20.0)
[2023-02-02] MEDS: INSULIN HUMULIN R 100 UNIT/ML 3ML SQ SCH ×4 (06:15→21:11)
[2023-02-02] MEDS ORDERED: VANCOMYCIN 1G/250ML KIT 250 ML IV ONE (06:30)
[2023-02-02] MEDS: VITAMIN E 400 UNIT CAPSULE PO SCH (08:55)
[2023-02-02] MEDS: MIDODRINE HCL 5 MG TABLET PO SCH ×3 (08:55→21:12)
[2023-02-02] MEDS: ASPIRIN 81 MG EC TAB PO SCH (08:55)
[2023-02-02] MEDS: Vitamin B Complex/Vit C/Folic Acid PO SCH (08:55)
[2023-02-02] MEDS: GABAPENTIN 100 MG CAPSULE PO SCH ×2 (08:55→21:12)
[2023-02-02] MEDS: LIDOCAINE 4% ADH..PATCH TP SCH (08:55)
[2023-02-02] MEDS: BACITRACIN 28.4 GM OINT TP SCH ×2 (08:56→21:12)
[2023-02-02] MEDS: SEVELAMER HCL 800 MG TABLET PO SCH ×3 (09:04→17:02)
[2023-02-02] MEDS: VANCOMYCIN 500MG+NS 100ML 100 ML IV SCH (17:03)
[2023-02-02] MEDS: FAMOTIDINE 20MG TAB PO SCH (21:12)
[2023-02-03] VITALS (9 sets, daily range): BP systolic 95–130; BP diastolic 42–71; PULSE 71–78; RESP 16–22; O2SAT 94–100
[2023-02-03] MEDS: ZOSYN 3.375GM +NS 50ML IV SCH ×2 (00:24→12:13)
[2023-02-03 05:01] LABS: HEMATOCRIT 30.7 % (42-54); MEAN CORPUSCULAR HEMOGLOBIN 34.6 pg (27.0-33.0); MEAN CORPUSCULAR HGB CONC 33.2 g/dL (32.0-36.0); MEAN CORPUSCULAR VOLUME 104.1 fL (79-99); RED BLOOD CELL COUNT(AUTO) 2.95 MIL/uL (4.50-6.20); RED CELL DISTRIBUTION WIDTH 16.6 % (11.0-15.5); WHITE BLOOD COUNT (AUTO) 15.2 K/uL (4.8-10.8)
[2023-02-03 05:20] LABS: ALBUMIN 1.7 g/dL (3.5-5.0); BILIRUBIN,TOTAL 1.5 mg/dL (0.2-1.0); POTASSIUM 4.3 mmol/L (3.5-5.1); TOTAL PROTEIN, SERUM 5.2 g/dL (6.0-8.3)
[2023-02-03] MEDS: INSULIN HUMULIN R 100 UNIT/ML 3ML SQ SCH ×4 (07:30→20:22)
[2023-02-03] MEDS: ASPIRIN 81 MG EC TAB PO SCH (08:31)
[2023-02-03] MEDS: MIDODRINE HCL 5 MG TABLET PO SCH ×3 (08:31→20:21)
[2023-02-03] MEDS: GABAPENTIN 100 MG CAPSULE PO SCH ×3 (08:31→20:21)
[2023-02-03] MEDS: VITAMIN E 400 UNIT CAPSULE PO SCH (08:31)
[2023-02-03] MEDS: LIDOCAINE 4% ADH..PATCH TP SCH (08:31)
[2023-02-03] MEDS: SEVELAMER HCL 800 MG TABLET PO SCH ×3 (08:31→16:51)
[2023-02-03] MEDS: Vitamin B Complex/Vit C/Folic Acid PO SCH (08:31)
[2023-02-03] MEDS: BACITRACIN 28.4 GM OINT TP SCH ×2 (08:32→20:23)
[2023-02-03] MEDS: FAMOTIDINE 20MG TAB PO SCH (20:21)
[2023-02-04] VITALS (22 sets, daily range): BP systolic 107–133; BP diastolic 38–61; PULSE 75–82; RESP 14–21; TEMP 97.5–97.7; O2SAT 92–100
[2023-02-04] MEDS: ZOSYN 3.375GM +NS 50ML IV SCH ×2 (00:22→13:00)
[2023-02-04] MEDS: INSULIN HUMULIN R 100 UNIT/ML 3ML SQ SCH ×3 (05:36→16:01)
[2023-02-04] MEDS: LIDOCAINE 4% ADH..PATCH TP SCH (09:20)
[2023-02-04] MEDS: Vitamin B Complex/Vit C/Folic Acid PO SCH (09:20)
[2023-02-04] MEDS: VITAMIN E 400 UNIT CAPSULE PO SCH (09:21)
[2023-02-04] MEDS: MIDODRINE HCL 5 MG TABLET PO SCH ×2 (09:21→14:00)
[2023-02-04] MEDS: ASPIRIN 81 MG EC TAB PO SCH (09:21)
[2023-02-04] MEDS: GABAPENTIN 100 MG CAPSULE PO SCH (09:21)
[2023-02-04] MEDS: SEVELAMER HCL 800 MG TABLET PO SCH ×3 (09:22→16:52)
[2023-02-04] MEDS: BACITRACIN 28.4 GM OINT TP SCH (09:23)
[2023-02-04] MEDS ORDERED: AMPICILLIN 2GM+NS 100ML IV SCH (13:30)
[2023-02-04] MEDS ORDERED: CEFTRIAXONE 2GM VIAL IVPB SCH (13:30)
== END 2023-02-04 17:25 | DRG 871 ==
LOC: EDH 02:17 → EDHIP 06:25 → OBSVTOIN 06:25 → 3AH 09:37 → 2AH 01-27 21:45 → 2DH 01-31 02:42
PROVIDERS: ADMIT Family Medicine; ATTEND Family Medicine
PROC: 5A1D70Z Performance of Urinary Filtration, Intermittent, Less than 6 Hours Per Day (ICD-10-PCS; 2023-01-25)
PROC: 5A1D70Z Performance of Urinary Filtration, Intermittent, Less than 6 Hours Per Day (ICD-10-PCS; 2023-01-26)
PROC: 5A1D70Z Performance of Urinary Filtration, Intermittent, Less than 6 Hours Per Day (ICD-10-PCS; 2023-01-28)
PROC: 5A1D70Z Performance of Urinary Filtration, Intermittent, Less than 6 Hours Per Day (ICD-10-PCS; 2023-01-30)
PROC: 0W9B30Z Drainage of Left Pleural Cavity with Drainage Device, Percutaneous Approach (ICD-10-PCS; principal; 2023-01-31)
PROC: 0W9930Z Drainage of Right Pleural Cavity with Drainage Device, Percutaneous Approach (ICD-10-PCS; 2023-01-31)
PROC: 5A1D70Z Performance of Urinary Filtration, Intermittent, Less than 6 Hours Per Day (ICD-10-PCS; 2023-02-02)
PROC: 5A1D70Z Performance of Urinary Filtration, Intermittent, Less than 6 Hours Per Day (ICD-10-PCS; 2023-02-04)
DX: A41.89 Other specified sepsis (principal); I21.A1 Myocardial infarction type 2; I50.33 Acute on chronic diastolic (congestive) heart failure; J96.01 Acute respiratory failure with hypoxia; N18.6 End stage renal disease; K72.00 Acute and subacute hepatic failure without coma; I13.2 Hypertensive heart and chronic kidney disease with heart failure and with stage 5 chronic kidney disease, or end stage renal disease; D68.59 Other primary thrombophilia; J98.11 Atelectasis; I42.9 Cardiomyopathy, unspecified; L97.928 Non-pressure chronic ulcer of unspecified part of left lower leg with other specified severity; L97.918 Non-pressure chronic ulcer of unspecified part of right lower leg with other specified severity; E46 Unspecified protein-calorie malnutrition; I48.21 Permanent atrial fibrillation; E11.22 Type 2 diabetes mellitus with diabetic chronic kidney disease; I95.9 Hypotension, unspecified; D64.9 Anemia, unspecified; E11.51 Type 2 diabetes mellitus with diabetic peripheral angiopathy without gangrene; B95.2 Enterococcus as the cause of diseases classified elsewhere; B96.89 Other specified bacterial agents as the cause of diseases classified elsewhere; D63.1 Anemia in chronic kidney disease; E11.65 Type 2 diabetes mellitus with hyperglycemia; E78.5 Hyperlipidemia, unspecified; I08.1 Rheumatic disorders of both mitral and tricuspid valves; I25.10 Atherosclerotic heart disease of native coronary artery without angina pectoris; I27.20 Pulmonary hypertension, unspecified; I45.9 Conduction disorder, unspecified; I87.2 Venous insufficiency (chronic) (peripheral); M54.59 Other low back pain; K76.0 Fatty (change of) liver, not elsewhere classified; Z74.01 Bed confinement status; Z79.82 Long term (current) use of aspirin; Z99.2 Dependence on renal dialysis; Z85.46 Personal history of malignant neoplasm of prostate; Z79.01 Long term (current) use of anticoagulants; Z82.49 Family history of ischemic heart disease and other diseases of the circulatory system; Z83.3 Family history of diabetes mellitus; Z91.158 Patient's noncompliance with renal dialysis for other reason; Z91.198 Patient's noncompliance with other medical treatment and regimen for other reason; Z95.810 Presence of automatic (implantable) cardiac defibrillator; Z68.22 Body mass index [BMI] 22.0-22.9, adult
CPT/HCPCS: 36415; 71045; 71250; 76700; 80048; 80053; 80076; 80202; 82306; 82550; 82945; 82948; 82977; 83605; 83615; 83735; 83986; 84100; 84157; 84484; 85018; 85025; 85027; 85384; 85610; 85730; 86704; 86706; 86850; 86900; 86901; 86927; 87040; 87071; 87077; 87186; 87205; 87340; 87635; 87804; 89051; 90935; 93005; 93306; 93312; 93925; 93970; 93975; A6250; C1894; G0378; G0481; J0290; J0696; J1170; J1815; J2250; J2543; J3010; J3370; J7070; P9017; Q0163; C1750